=== PATIENT | female | born 1970 | race African-American/Black ===

== ENCOUNTER 2017-06-25 08:38 | Inpatient (IN) | payer BC ==
[2017-06-25] MEDS ORDERED: DEXTROSE 50% 50 ML SYRINGE IV ×2 (12:00)
[2017-06-25] MEDS ORDERED: GLUCAGON 1 MG INJ IM (12:00)
[2017-06-25] MEDS ORDERED: GLUCOSE GEL 15 GRAM TUBE PO ×2 (12:00)
[2017-06-25] MEDS ORDERED: GLUCOSE GEL 15 GRAM TUBE BUCCAL (12:00)
[2017-06-25] MEDS: ASPIRIN (EC) 81 MG TAB PO (13:43)
[2017-06-25] MEDS: LISINOPRIL 5 MG TAB PO (13:44)
[2017-06-25] MEDS: METOPROLOL (XL) 50 MG TAB PO (13:44)
[2017-06-25] MEDS: POTASSIUM CHLORIDE (SR) 20 MEQ TAB PO (13:44)
[2017-06-25] MEDS: LORAZEPAM 0.5 MG TAB PO (13:45)
[2017-06-25] MEDS: INSULIN ASPART [NOVOLOG] 3 ML PEN SC ×3 (14:56→20:23)
[2017-06-25] MEDS: morphine 2 MG INJ IV ×3 (15:20→22:54)
[2017-06-25] MEDS ORDERED: MAGNESIUM HYDROXIDE 30ML CUP PO (16:30)
[2017-06-25] MEDS ORDERED: NACL 0.9% 3 ML SYG IV (16:30)
[2017-06-25] MEDS ORDERED: ACETAMINOPHEN 650 MG SUPP PR (16:30)
[2017-06-25] MEDS ORDERED: DOCUSATE SODIUM 100 MG CAP PO (16:30)
[2017-06-25] MEDS ORDERED: ONDANSETRON 4 MG INJ IV (16:30)
[2017-06-25] MEDS ORDERED: BISACODYL (EC) 5 MG TAB PO (16:30)
[2017-06-25] MEDS: CEFTRIAXONE 1 GM/50 ML (PMX) 50 ML IVPB (17:14)
[2017-06-25] MEDS ORDERED: metFORMIN 500 MG TAB PO (18:05)
[2017-06-25] MEDS: QUETIAPINE 100 MG TAB PO (18:25)
[2017-06-25] MEDS: metFORMIN 500 MG TAB PO (18:45)
[2017-06-25] MEDS: LEVALBUTEROL (NEB) 1.25 MG/0.5 ML AMP HHN (20:01)
[2017-06-25] MEDS: IPRATROPIUM (NEB) 0.5 MG/2.5 ML AMP HHN (20:02)
[2017-06-25] MEDS: FUROSEMIDE 40 MG INJ IV (20:12)
[2017-06-26] MEDS: ACCU-CHEK XX ×2 (02:00)
[2017-06-26] MEDS: LEVALBUTEROL (NEB) 1.25 MG/0.5 ML AMP HHN ×4 (02:00→21:00)
[2017-06-26] MEDS: morphine 2 MG INJ IV ×3 (04:27→19:50)
[2017-06-26] MEDS: IPRATROPIUM (NEB) 0.5 MG/2.5 ML AMP HHN ×4 (07:43→21:00)
[2017-06-26 08:29] LABS: ADD MAN DIFF? NO
[2017-06-26 08:52] LABS: BASOPHILS % 0.4 % (0.0-2.0); EOSINOPHILS % 0.3 % (0.0-7.0); HEMATOCRIT 37.9 % (37.0-47.0); HEMOGLOBIN 11.2 g/dl (12.0-16.0); LYMPHOCYTES # 1.1 10^3/ul (0.8-2.9); LYMPHOCYTES % 14.5 % (15.0-51.0); MEAN CORPUSCULAR HGB CONC 29.6 g/dl (32.0-37.0); MEAN CORPUSCULAR VOLUME 91.3 fl (82.0-101.0); MEAN PLATELET VOLUME 11.3 fl (7.4-10.4); MONOCYTE # 0.6 10^3/ul (0.3-0.9); NEUTROPHIL # 5.9 10^3/ul (1.6-7.5); NEUTROPHILS % 76.4 % (39.0-77.0); PLATELET COUNT 232 10^3/UL (140-415); RED BLOOD COUNT 4.15 10^6/ul (4.20-5.40); RED CELL DISTRIBUTION WIDTH 17.3 % (11.5-14.5)
[2017-06-26 08:52] LABS: WHITE BLOOD COUNT 7.7 10^3/ul (4.8-10.8)
[2017-06-26] MEDS ORDERED: FUROSEMIDE 40 MG INJ IV (09:00)
[2017-06-26] MEDS: POTASSIUM CHLORIDE (SR) 20 MEQ TAB PO (09:07)
[2017-06-26] MEDS: ASPIRIN (EC) 81 MG TAB PO (09:07)
[2017-06-26] MEDS: LISINOPRIL 5 MG TAB PO (09:08)
[2017-06-26] MEDS: metFORMIN 500 MG TAB PO (09:08)
[2017-06-26] MEDS: METOPROLOL (XL) 50 MG TAB PO (09:08)
[2017-06-26] MEDS: FUROSEMIDE 40 MG INJ IV ×2 (09:10→21:41)
[2017-06-26] MEDS: INSULIN ASPART [NOVOLOG] 3 ML PEN SC ×5 (09:20→21:00)
[2017-06-26 09:56] LABS: ALBUMIN/GLOBULIN RATIO 0.85; ANION GAP 13 (8-16)
[2017-06-26 10:14] LABS: ALANINE AMINOTRANSFERASE 72 IU/L (13-69); ALKALINE PHOSPHATASE 78 IU/L (42-121); ASPARTATE AMINO TRANSFERASE 62 IU/L (15-46); BLOOD UREA NITROGEN 26 mg/dl (7-20); CALCIUM 9.1 mg/dl (8.4-10.2); CARBON DIOXIDE 32 mmol/L (21-31); CHLORIDE 97 mmol/L (97-110); CREATININE 1.01 mg/dl (0.44-1.00); GLUCOSE 158 mg/dl (70-220); POTASSIUM 4.7 mmol/L (3.5-5.1); SODIUM 137 mmol/L (135-144)
[2017-06-26 10:15] LABS: ALBUMIN 2.9 g/dl (3.3-4.9); BILIRUBIN,INDIRECT 0.1 mg/dl (0-1.1); BILIRUBIN,TOTAL 0.1 mg/dl (0.2-1.3); TOTAL PROTEIN 6.3 g/dl (6.1-8.1)
[2017-06-26] MEDS: CEFTRIAXONE 1 GM/50 ML (PMX) 50 ML IVPB (11:18)
[2017-06-26] MEDS: ENOXAPARIN 40 MG/0.4 ML SYG SC (15:00)
[2017-06-26] MEDS: METHYLPREDNISOLONE 40 MG INJ IV ×2 (16:00→21:40)
[2017-06-26] MEDS: [UNRECOGNIZED DRUG - REMARK] XX (16:57)
[2017-06-26] MEDS: HYPOGLYCEMIA PROTOCOL when Glucose is <70 mg/dL or symptomatic <90 mg/dL. XX (16:57)
[2017-06-26 17:33] LABS: AADO2 Arterial 40.1 mmHg (7.0-24.0); Allen Test ACCEPTAB; Arterial Base Excess 3.3 mmol/L (-3.0-3); Arterial Blood Gas Oxygen Sat 98.1 mmHG (95.0-98.0); Arterial COHb 0.5 % (0.0-3.0); Arterial Fraction of Oxyhgb 97.3 % (93.0-99.0); Arterial HCO3 31.3 mmol/L (22.0-26.0); Arterial MetHb 0.3 % (0.0-1.5); Arterial Total Hemglobin 13.1 g/dl (12.0-18.0); Arterial pCO2 63.8 mmhg (35-45); MODE NASAL CANNULA; Site Right Radial
[2017-06-26 18:25] LABS: MAGNESIUM 1.7 mg/dl (1.7-2.5)
[2017-06-26] MEDS: ACETAMINOPHEN 325 MG TAB PO (18:35)
[2017-06-26 19:08] LABS: TROPONIN-I 0.019 ng/ml (0.00-0.12)
[2017-06-26] MEDS: AZITHROMYCIN 250 MG TAB PO (19:25)
[2017-06-26] MEDS ORDERED: POTASSIUM CHLORIDE (SR) 10 MEQ TAB PO (20:30)
[2017-06-26] MEDS ORDERED: MAGNESIUM SULFATE 2 GM/50 ML 50 ML IVPB (20:30)
[2017-06-26] MEDS: QUETIAPINE 100 MG TAB PO (21:53)
[2017-06-27] MEDS: LEVALBUTEROL (NEB) 1.25 MG/0.5 ML AMP HHN ×6 (01:29→23:12)
[2017-06-27] MEDS: ACCU-CHEK XX (02:00)
[2017-06-27] MEDS: METHYLPREDNISOLONE 40 MG INJ IV ×3 (05:56→22:34)
[2017-06-27] MEDS: morphine 2 MG INJ IV ×5 (05:56→22:38)
[2017-06-27] MEDS: IPRATROPIUM (NEB) 0.5 MG/2.5 ML AMP HHN ×4 (07:48→20:00)
[2017-06-27] MEDS: INSULIN ASPART [NOVOLOG] 3 ML PEN SC ×7 (08:30→20:18)
[2017-06-27] MEDS: INSULIN DETEMIR [LEVEMIR] 3ML CART SC (08:31)
[2017-06-27] MEDS: ENOXAPARIN 40 MG/0.4 ML SYG SC (08:32)
[2017-06-27] MEDS: ASPIRIN (EC) 81 MG TAB PO (08:42)
[2017-06-27] MEDS: POTASSIUM CHLORIDE (SR) 20 MEQ TAB PO (08:42)
[2017-06-27] MEDS: FUROSEMIDE 40 MG INJ IV ×2 (08:43→20:08)
[2017-06-27] MEDS: QUETIAPINE 100 MG TAB PO (08:43)
[2017-06-27] MEDS: LISINOPRIL 5 MG TAB PO (08:43)
[2017-06-27 08:57] LABS: HEMATOCRIT 35.8 % (37.0-47.0); HEMOGLOBIN 10.8 g/dl (12.0-16.0); MEAN CORPUSCULAR HEMOGLOBIN 27.4 pg (29.0-33.0); MEAN CORPUSCULAR HGB CONC 30.2 g/dl (32.0-37.0); MEAN CORPUSCULAR VOLUME 90.9 fl (82.0-101.0); MEAN PLATELET VOLUME 11.6 fl (7.4-10.4); PLATELET COUNT 202 10^3/UL (140-415); RED BLOOD COUNT 3.94 10^6/ul (4.20-5.40); RED CELL DISTRIBUTION WIDTH 17.5 % (11.5-14.5)
[2017-06-27 08:57] LABS: WHITE BLOOD COUNT 4.1 10^3/ul (4.8-10.8)
[2017-06-27 09:09] LABS: ADD MAN DIFF? YES; POSITIVE DIFF @See below
[2017-06-27 09:11] LABS: ANION GAP 12 (8-16); BLOOD UREA NITROGEN 35 mg/dl (7-20); CALCIUM 8.5 mg/dl (8.4-10.2); CARBON DIOXIDE 34 mmol/L (21-31); CHLORIDE 94 mmol/L (97-110); CREATININE 0.95 mg/dl (0.44-1.00); GLUCOSE 227 mg/dl (70-220); POTASSIUM 5.5 mmol/L (3.5-5.1); SODIUM 134 mmol/L (135-144)
[2017-06-27 09:17] LABS: PHOSPHORUS 5.3 mg/dl (2.5-4.9)
[2017-06-27 09:18] LABS: B-TYPE NATRIURETIC PEPTIDE 1320 PG/ML (0-125)
[2017-06-27 09:42] LABS: MAGNESIUM 1.7 mg/dl (1.7-2.5)
[2017-06-27 10:28] LABS: ANISOCYTOSIS 1+ (0-0); BAND NEUTROPHILS #M 0.2 10^3/ul (0.0-0.6); BAND NEUTROPHILS % (M) 7 % (0-4); GIANT THROMBO% (M) 2 % (0-0); HYPOCHROMASIA 1+ (0-0); LYMPHOCYTES #M 0.9 10^3/ul (0.8-2.9); LYMPHOCYTES % (M) 22 % (15-51); MONOCYTE #M 0.1 10^3/ul (0.3-0.9); MONOCYTES % (M) 4 % (0-11); PLATELET ESTIMATE NORMAL; POLYCHROMASIA 2+ (0-0); SEG NEUT #M 2.7 10^3/ul (1.7-7.5); SEGMENTED NEUTROPHILS (M) % 66 % (39-77); SMUDGE%M 19 % (0-0)
[2017-06-27] MEDS: CEFTRIAXONE 1 GM/50 ML (PMX) 50 ML IVPB (12:04)
[2017-06-27] MEDS: NA POLYST SULFON 15 GM/60 ML BTL PO (17:50)
[2017-06-27 18:53] LABS: TROPONIN-I < 0.012 ng/ml (0.00-0.12)
[2017-06-28] MEDS: ACCU-CHEK XX (02:00)
[2017-06-28 02:59] LABS: TROPONIN-I < 0.012 ng/ml (0.00-0.12)
[2017-06-28] MEDS: morphine 2 MG INJ IV ×5 (03:28→22:42)
[2017-06-28] MEDS: LEVALBUTEROL (NEB) 1.25 MG/0.5 ML AMP HHN ×5 (04:08→20:26)
[2017-06-28] MEDS: METHYLPREDNISOLONE 40 MG INJ IV ×3 (06:12→22:41)
[2017-06-28] MEDS ORDERED: INSULIN DETEMIR [LEVEMIR] 3ML CART SC (08:00)
[2017-06-28] MEDS: IPRATROPIUM (NEB) 0.5 MG/2.5 ML AMP HHN ×4 (08:31→20:25)
[2017-06-28] MEDS: FUROSEMIDE 40 MG INJ IV ×2 (09:12→21:09)
[2017-06-28] MEDS: INSULIN ASPART [NOVOLOG] 3 ML PEN SC ×7 (09:16→21:11)
[2017-06-28] MEDS: INSULIN DETEMIR [LEVEMIR] 3ML CART SC (09:17)
[2017-06-28] MEDS: ENOXAPARIN 40 MG/0.4 ML SYG SC (09:19)
[2017-06-28 10:37] LABS: ADD MAN DIFF? NO
[2017-06-28 10:40] LABS: WHITE BLOOD COUNT 6.4 10^3/ul (4.8-10.8)
[2017-06-28 10:40] LABS: BASOPHILS % 0.2 % (0.0-2.0); HEMATOCRIT 38.6 % (37.0-47.0); HEMOGLOBIN 11.7 g/dl (12.0-16.0); LYMPHOCYTES # 1.2 10^3/ul (0.8-2.9); LYMPHOCYTES % 18.1 % (15.0-51.0); MEAN CORPUSCULAR HEMOGLOBIN 27.4 pg (29.0-33.0); MEAN CORPUSCULAR HGB CONC 30.3 g/dl (32.0-37.0); MEAN CORPUSCULAR VOLUME 90.4 fl (82.0-101.0); MEAN PLATELET VOLUME 10.8 fl (7.4-10.4); MONOCYTE # 0.4 10^3/ul (0.3-0.9); MONOCYTES % 6.9 % (0.0-11.0); NEUTROPHIL # 4.8 10^3/ul (1.6-7.5); NEUTROPHILS % 74.2 % (39.0-77.0); PLATELET COUNT 195 10^3/UL (140-415); RED BLOOD COUNT 4.27 10^6/ul (4.20-5.40); RED CELL DISTRIBUTION WIDTH 17.2 % (11.5-14.5)
[2017-06-28] MEDS: METOPROLOL (XL) 25 MG TAB PO (10:49)
[2017-06-28] MEDS: ASPIRIN (EC) 81 MG TAB PO (10:50)
[2017-06-28] MEDS: LISINOPRIL 5 MG TAB PO (10:50)
[2017-06-28 11:20] LABS: ANION GAP 12 (8-16); BLOOD UREA NITROGEN 25 mg/dl (7-20); CALCIUM 8.4 mg/dl (8.4-10.2); CARBON DIOXIDE 38 mmol/L (21-31); CHLORIDE 90 mmol/L (97-110); CREATININE 0.74 mg/dl (0.44-1.00); GLUCOSE 269 mg/dl (70-220); POTASSIUM 4.6 mmol/L (3.5-5.1); SODIUM 135 mmol/L (135-144)
[2017-06-28 11:22] LABS: CHOLESTEROL 123 mg/dl (100-200)
[2017-06-28 11:22] LABS: CHOL/HDL RATIO 4.3 RATIO; HDL CHOLESTEROL 28 mg/dl (34-88); LDL CHOLESTEROL,CALCULATED 80 mg/dl; TRIGLYCERIDES 74 mg/dl (0-149)
[2017-06-28] MEDS: CEFTRIAXONE 1 GM/50 ML (PMX) 50 ML IVPB (12:08)
[2017-06-28] MEDS: QUETIAPINE 100 MG TAB PO (21:09)
[2017-06-28] MEDS ORDERED: DEXTROSE 5%-0.45% NACL 1,000 ML IV (23:30)
[2017-06-29] MEDS: LEVALBUTEROL (NEB) 1.25 MG/0.5 ML AMP HHN ×6 (00:23→20:20)
[2017-06-29] MEDS: ACCU-CHEK XX (02:00)
[2017-06-29] MEDS: METHYLPREDNISOLONE 40 MG INJ IV ×3 (06:49→22:07)
[2017-06-29] MEDS: IPRATROPIUM (NEB) 0.5 MG/2.5 ML AMP HHN ×4 (07:48→20:20)
[2017-06-29 09:01] LABS: WHITE BLOOD COUNT 7.9 10^3/ul (4.8-10.8)
[2017-06-29 09:01] LABS: ADD MAN DIFF? NO; BASOPHILS % 0.1 % (0.0-2.0); LYMPHOCYTES # 1.9 10^3/ul (0.8-2.9); LYMPHOCYTES % 24.7 % (15.0-51.0); MEAN CORPUSCULAR HEMOGLOBIN 27.4 pg (29.0-33.0); MEAN CORPUSCULAR VOLUME 91.3 fl (82.0-101.0); MEAN PLATELET VOLUME 10.9 fl (7.4-10.4); MONOCYTE # 0.6 10^3/ul (0.3-0.9); MONOCYTES % 7.6 % (0.0-11.0); NEUTROPHIL # 5.3 10^3/ul (1.6-7.5); NEUTROPHILS % 67.1 % (39.0-77.0); PLATELET COUNT 184 10^3/UL (140-415); RED BLOOD COUNT 4.38 10^6/ul (4.20-5.40); RED CELL DISTRIBUTION WIDTH 17.1 % (11.5-14.5)
[2017-06-29 09:15] LABS: POSITIVE DIFF @See below
[2017-06-29 09:26] LABS: MAGNESIUM 1.7 mg/dl (1.7-2.5)
[2017-06-29 09:34] LABS: ANION GAP 12 (8-16); BLOOD UREA NITROGEN 25 mg/dl (7-20); CALCIUM 8.4 mg/dl (8.4-10.2); CHLORIDE 92 mmol/L (97-110); CREATININE 0.66 mg/dl (0.44-1.00); GLUCOSE 256 mg/dl (70-220); POTASSIUM 4.3 mmol/L (3.5-5.1); SODIUM 140 mmol/L (135-144)
[2017-06-29] MEDS: ASPIRIN (EC) 81 MG TAB PO (09:41)
[2017-06-29] MEDS: METOPROLOL (XL) 25 MG TAB PO (09:42)
[2017-06-29] MEDS: LISINOPRIL 5 MG TAB PO (09:42)
[2017-06-29] MEDS: morphine 2 MG INJ IV (09:43)
[2017-06-29] MEDS: FUROSEMIDE 40 MG INJ IV ×2 (09:43→22:06)
[2017-06-29 09:48] LABS: CARBON DIOXIDE 41 mmol/L (21-31)
[2017-06-29] MEDS: INSULIN DETEMIR [LEVEMIR] 3ML CART SC ×2 (09:48→22:09)
[2017-06-29] MEDS: ENOXAPARIN 40 MG/0.4 ML SYG SC (09:49)
[2017-06-29] MEDS: INSULIN ASPART [NOVOLOG] 3 ML PEN SC ×7 (09:50→22:10)
[2017-06-29] MEDS: morphine 4 MG/ML VIAL IV ×4 (10:41→23:06)
[2017-06-29] MEDS: CEFTRIAXONE 1 GM/50 ML (PMX) 50 ML IVPB (12:10)
[2017-06-29] MEDS: QUETIAPINE 100 MG TAB PO (22:07)
[2017-06-30] MEDS: LEVALBUTEROL (NEB) 1.25 MG/0.5 ML AMP HHN ×7 (00:03→22:01)
[2017-06-30] MEDS: ACCU-CHEK XX (02:00)
[2017-06-30 07:55] LABS: HEMOGLOBIN A1C 8.6 % (0-5.9)
[2017-06-30] MEDS: IPRATROPIUM (NEB) 0.5 MG/2.5 ML AMP HHN ×5 (07:58→22:01)
[2017-06-30] MEDS: FUROSEMIDE 40 MG INJ IV (09:02)
[2017-06-30] MEDS: ACETAZOLAMIDE 250 MG TAB PO (09:02)
[2017-06-30] MEDS: METHYLPREDNISOLONE 40 MG INJ IV ×2 (09:03→20:43)
[2017-06-30] MEDS: METOPROLOL (XL) 25 MG TAB PO (09:03)
[2017-06-30] MEDS: LISINOPRIL 5 MG TAB PO (09:03)
[2017-06-30] MEDS: ASPIRIN (EC) 81 MG TAB PO (09:03)
[2017-06-30] MEDS: INSULIN ASPART [NOVOLOG] 3 ML PEN SC ×7 (09:05→20:59)
[2017-06-30] MEDS: ENOXAPARIN 40 MG/0.4 ML SYG SC (09:16)
[2017-06-30] MEDS: morphine 4 MG/ML VIAL IV ×2 (09:16→16:43)
[2017-06-30] MEDS: LINAGLIPTIN 5 MG TABLET PO ×2 (12:00→16:48)
[2017-06-30] MEDS: CEFTRIAXONE 1 GM/50 ML (PMX) 50 ML IVPB (12:20)
[2017-06-30] MEDS: QUETIAPINE 100 MG TAB PO (20:44)
[2017-06-30] MEDS: HYDROmorphONE 1 MG/ML SYG IV (20:44)
[2017-06-30] MEDS: INSULIN DETEMIR [LEVEMIR] 3ML CART SC (20:59)
[2017-07-01] MEDS: FUROSEMIDE 20 MG INJ IV ×4 (00:45→18:39)
[2017-07-01] MEDS: LEVALBUTEROL (NEB) 1.25 MG/0.5 ML AMP HHN ×6 (01:20→21:03)
[2017-07-01] MEDS: ACCU-CHEK XX (02:15)
[2017-07-01] MEDS: IPRATROPIUM (NEB) 0.5 MG/2.5 ML AMP HHN ×4 (08:10→21:02)
[2017-07-01] MEDS: METHYLPREDNISOLONE 40 MG INJ IV ×2 (08:45→20:46)
[2017-07-01] MEDS: METOLAZONE 2.5 MG TAB PO (08:46)
[2017-07-01] MEDS: ENOXAPARIN 40 MG/0.4 ML SYG SC (08:47)
[2017-07-01] MEDS: INSULIN ASPART [NOVOLOG] 3 ML PEN SC ×7 (08:48→20:48)
[2017-07-01] MEDS: ASPIRIN (EC) 81 MG TAB PO (08:48)
[2017-07-01] MEDS: LISINOPRIL 5 MG TAB PO (08:49)
[2017-07-01] MEDS: ACETAZOLAMIDE 250 MG TAB PO (08:49)
[2017-07-01] MEDS: LINAGLIPTIN 5 MG TABLET PO (08:49)
[2017-07-01] MEDS: METOPROLOL (XL) 25 MG TAB PO (08:49)
[2017-07-01] MEDS: HYDROmorphONE 1 MG/ML SYG IV ×3 (09:37→18:45)
[2017-07-01] MEDS ORDERED: VITAMIN A & D 5 GM OINT PACKET TOP (11:23)
[2017-07-01] MEDS: CEFTRIAXONE 1 GM/50 ML (PMX) 50 ML IVPB (12:35)
[2017-07-01] MEDS: QUETIAPINE 100 MG TAB PO (20:46)
[2017-07-01] MEDS: INSULIN DETEMIR [LEVEMIR] 3ML CART SC (20:49)
[2017-07-02] MEDS: FUROSEMIDE 20 MG INJ IV ×5 (01:15→23:48)
[2017-07-02] MEDS: LEVALBUTEROL (NEB) 1.25 MG/0.5 ML AMP HHN ×6 (01:55→21:04)
[2017-07-02] MEDS: ACCU-CHEK XX (02:00)
[2017-07-02] MEDS: HYDROmorphONE 1 MG/ML SYG IV ×5 (03:16→22:12)
[2017-07-02] MEDS: METOPROLOL (XL) 25 MG TAB PO (08:45)
[2017-07-02] MEDS: LISINOPRIL 5 MG TAB PO (08:46)
[2017-07-02] MEDS: METHYLPREDNISOLONE 40 MG INJ IV (09:03)
[2017-07-02] MEDS: METOLAZONE 2.5 MG TAB PO (09:04)
[2017-07-02] MEDS: ACETAZOLAMIDE 250 MG TAB PO (09:05)
[2017-07-02] MEDS: LINAGLIPTIN 5 MG TABLET PO (09:05)
[2017-07-02] MEDS: ASPIRIN (EC) 81 MG TAB PO (09:05)
[2017-07-02] MEDS: ENOXAPARIN 40 MG/0.4 ML SYG SC (09:12)
[2017-07-02] MEDS: INSULIN ASPART [NOVOLOG] 3 ML PEN SC ×7 (09:23→21:02)
[2017-07-02] MEDS: IPRATROPIUM (NEB) 0.5 MG/2.5 ML AMP HHN ×4 (09:59→21:04)
[2017-07-02 10:48] LABS: ALANINE AMINOTRANSFERASE 47 IU/L (13-69); ALBUMIN 3.4 g/dl (3.3-4.9); ALBUMIN/GLOBULIN RATIO 1.06; ALKALINE PHOSPHATASE 65 IU/L (42-121); ANION GAP 13 (8-16); ASPARTATE AMINO TRANSFERASE 29 IU/L (15-46); BILIRUBIN,INDIRECT 0.1 mg/dl (0-1.1); BILIRUBIN,TOTAL 0.1 mg/dl (0.2-1.3); BLOOD UREA NITROGEN 30 mg/dl (7-20); CALCIUM 8.9 mg/dl (8.4-10.2); CARBON DIOXIDE 38 mmol/L (21-31); CHLORIDE 88 mmol/L (97-110); CREATININE 0.81 mg/dl (0.44-1.00); GLUCOSE 251 mg/dl (70-220); POTASSIUM 3.9 mmol/L (3.5-5.1); SODIUM 135 mmol/L (135-144); TOTAL PROTEIN 6.6 g/dl (6.1-8.1)
[2017-07-02] MEDS: CEFTRIAXONE 1 GM/50 ML (PMX) 50 ML IVPB (11:52)
[2017-07-02 16:41] LABS: Allen Test ACCEPTAB; Arterial Base Excess 11.1 mmol/L (-3.0-3); Arterial Blood Gas Oxygen Sat 94.7 mmHG (95.0-98.0); Arterial Fraction of Oxyhgb 93.6 % (93.0-99.0); Arterial HCO3 39.5 mmol/L (22.0-26.0); Arterial MetHb 0.2 % (0.0-1.5); Arterial pCO2 68.5 mmhg (35-45); MODE NASAL CANNULA; Site Right Radial
[2017-07-02] MEDS: INSULIN DETEMIR [LEVEMIR] 3ML CART SC (21:03)
[2017-07-02] MEDS: QUETIAPINE 100 MG TAB PO (22:11)
[2017-07-03] MEDS: LEVALBUTEROL (NEB) 1.25 MG/0.5 ML AMP HHN ×7 (01:55→21:46)
[2017-07-03] MEDS: ACCU-CHEK XX (02:00)
[2017-07-03] MEDS: FUROSEMIDE 20 MG INJ IV ×3 (06:00→17:10)
[2017-07-03] MEDS: INSULIN ASPART [NOVOLOG] 3 ML PEN SC ×7 (08:00→20:48)
[2017-07-03 08:13] LABS: ADD MAN DIFF? NO
[2017-07-03 08:19] LABS: BASOPHILS % 0.1 % (0.0-2.0); EOSINOPHILS % 0.3 % (0.0-7.0); HEMATOCRIT 43.7 % (37.0-47.0); HEMOGLOBIN 13.4 g/dl (12.0-16.0); LYMPHOCYTES # 3.6 10^3/ul (0.8-2.9); LYMPHOCYTES % 28.5 % (15.0-51.0); MEAN CORPUSCULAR HEMOGLOBIN 26.7 pg (29.0-33.0); MEAN CORPUSCULAR HGB CONC 30.7 g/dl (32.0-37.0); MEAN CORPUSCULAR VOLUME 87.1 fl (82.0-101.0); MEAN PLATELET VOLUME 11.5 fl (7.4-10.4); MONOCYTES % 7.5 % (0.0-11.0); NEUTROPHILS % 62.8 % (39.0-77.0); PLATELET COUNT 219 10^3/UL (140-415); RED BLOOD COUNT 5.02 10^6/ul (4.20-5.40); RED CELL DISTRIBUTION WIDTH 17.3 % (11.5-14.5)
[2017-07-03 08:19] LABS: WHITE BLOOD COUNT 12.7 10^3/ul (4.8-10.8)
[2017-07-03] MEDS: IPRATROPIUM (NEB) 0.5 MG/2.5 ML AMP HHN ×5 (08:33→21:46)
[2017-07-03 08:44] LABS: MAGNESIUM 1.7 mg/dl (1.7-2.5)
[2017-07-03 08:44] LABS: PHOSPHORUS 4.7 mg/dl (2.5-4.9)
[2017-07-03 08:58] LABS: BLOOD UREA NITROGEN 37 mg/dl (7-20); CALCIUM 9.1 mg/dl (8.4-10.2); CHLORIDE 89 mmol/L (97-110); CREATININE 0.92 mg/dl (0.44-1.00); GLUCOSE 160 mg/dl (70-220); POTASSIUM 3.6 mmol/L (3.5-5.1); SODIUM 139 mmol/L (135-144)
[2017-07-03 09:02] LABS: ANION GAP 14 (8-16)
[2017-07-03 09:08] LABS: CARBON DIOXIDE 40 mmol/L (21-31)
[2017-07-03] MEDS: HYDROmorphONE 1 MG/ML SYG IV (09:20)
[2017-07-03] MEDS: predniSONE 20 MG TAB PO (09:45)
[2017-07-03] MEDS: ASPIRIN (EC) 81 MG TAB PO (09:45)
[2017-07-03] MEDS: ACETAZOLAMIDE 250 MG TAB PO (09:46)
[2017-07-03] MEDS: METOLAZONE 2.5 MG TAB PO (09:46)
[2017-07-03] MEDS: LINAGLIPTIN 5 MG TABLET PO (09:47)
[2017-07-03] MEDS: LISINOPRIL 5 MG TAB PO (09:47)
[2017-07-03] MEDS: METOPROLOL (XL) 25 MG TAB PO (09:48)
[2017-07-03] MEDS: ENOXAPARIN 40 MG/0.4 ML SYG SC (09:55)
[2017-07-03 10:48] LABS: AADO2 Arterial 35.9 mmHg (7.0-24.0)
[2017-07-03] MEDS: HYDROmorphONE 4 MG TAB PO ×3 (13:57→21:36)
[2017-07-03] MEDS ORDERED: FUROSEMIDE 20 MG TAB PO (18:00)
[2017-07-03] MEDS: QUETIAPINE 100 MG TAB PO (20:43)
[2017-07-03] MEDS: INSULIN DETEMIR [LEVEMIR] 3ML CART SC (20:49)
[2017-07-04] MEDS: LEVALBUTEROL (NEB) 1.25 MG/0.5 ML AMP HHN ×2 (00:26→04:27)
[2017-07-04] MEDS: ACCU-CHEK XX (02:00)
[2017-07-04] MEDS: HYDROmorphONE 4 MG TAB PO ×2 (05:11→10:06)
[2017-07-04] MEDS: FUROSEMIDE 20 MG TAB PO (05:12)
[2017-07-04] MEDS: ACETAZOLAMIDE 250 MG TAB PO (08:47)
[2017-07-04] MEDS: LINAGLIPTIN 5 MG TABLET PO (08:48)
[2017-07-04] MEDS: predniSONE 50 MG TAB GTB (08:48)
[2017-07-04] MEDS: ASPIRIN (EC) 81 MG TAB PO (08:49)
[2017-07-04] MEDS: INSULIN ASPART [NOVOLOG] 3 ML PEN SC ×2 (08:55→08:56)
[2017-07-04] MEDS: ENOXAPARIN 40 MG/0.4 ML SYG SC (08:56)
[2017-07-04] MEDS: LISINOPRIL 5 MG TAB PO (08:56)
[2017-07-04] MEDS: METOPROLOL (XL) 25 MG TAB PO (08:57)
[2017-07-04 09:04] LABS: ANION GAP 14 (8-16); BLOOD UREA NITROGEN 44 mg/dl (7-20); CARBON DIOXIDE 34 mmol/L (21-31); CHLORIDE 92 mmol/L (97-110); CREATININE 0.91 mg/dl (0.44-1.00); GLUCOSE 258 mg/dl (70-220); POTASSIUM 3.8 mmol/L (3.5-5.1); SODIUM 136 mmol/L (135-144)
== END 2017-07-04 10:47 | disposition home or self-care (01) | DRG 291 ==
LOC: MS4 08:38
PROVIDERS: Internal Medicine Nephrology
DX: I11.0 Hypertensive heart disease with heart failure (principal); J18.9 Pneumonia, unspecified organism; I47.2 Ventricular tachycardia; J96.11 Chronic respiratory failure with hypoxia; J96.12 Chronic respiratory failure with hypercapnia; I42.9 Cardiomyopathy, unspecified; J44.1 Chronic obstructive pulmonary disease with (acute) exacerbation; Z68.43 Body mass index [BMI] 50.0-59.9, adult; E87.1 Hypo-osmolality and hyponatremia; I50.23 Acute on chronic systolic (congestive) heart failure; E11.9 Type 2 diabetes mellitus without complications; D64.9 Anemia, unspecified; E78.5 Hyperlipidemia, unspecified; F32.9 Major depressive disorder, single episode, unspecified; G47.33 Obstructive sleep apnea (adult) (pediatric); E66.01 Morbid (severe) obesity due to excess calories; E87.5 Hyperkalemia; F41.9 Anxiety disorder, unspecified
CPT/HCPCS: 36600; 71010; 71045; 80048; 80053; 80061; 82803; 82962; 83036; 83735; 83880; 84100; 84484; 85025; 87070; 87400; 93005; 93970; 94640; 94660; 94664; 97110; 97116; 97163; 97530; J1940

== ENCOUNTER 2017-07-24 11:11 | Inpatient (IN) | payer BC ==
[2017-07-24] MEDS ORDERED: DOCUSATE SODIUM 100 MG CAP PO (13:30)
[2017-07-24] MEDS ORDERED: BISACODYL (EC) 5 MG TAB PO (13:30)
[2017-07-24] MEDS ORDERED: GLUCOSE GEL 15 GRAM TUBE BUCCAL (13:30)
[2017-07-24] MEDS ORDERED: GLUCAGON 1 MG INJ IM (13:30)
[2017-07-24] MEDS ORDERED: ALBUTEROL/IPRATROPIUM (NEB) 3 ML AMP HHN (13:30)
[2017-07-24] MEDS ORDERED: GLUCOSE GEL 15 GRAM TUBE PO ×2 (13:30)
[2017-07-24] MEDS ORDERED: DEXTROSE 50% 50 ML SYRINGE IV ×2 (13:30)
[2017-07-24] MEDS: HYDROmorphONE 0.5 MG/0.5 ML SYG IV ×3 (13:49→22:51)
[2017-07-24] MEDS: ALBUTEROL/IPRATROPIUM (NEB) 3 ML AMP HHN ×3 (14:00→19:23)
[2017-07-24] MEDS ORDERED: INSULIN ASPART [NOVOLOG] 3 ML PEN SC (17:55)
[2017-07-24] MEDS: INSULIN ASPART [NOVOLOG] 3 ML PEN SC ×3 (18:22→21:00)
[2017-07-24] MEDS ORDERED: VITAMIN A & D 5 GM OINT PACKET TOP (20:32)
[2017-07-24] MEDS: ATORVASTATIN 10 MG TAB PO (21:19)
[2017-07-24] MEDS: INSULIN DETEMIR [LEVEMIR] 3ML CART SC (21:26)
[2017-07-25] MEDS ORDERED: ACCU-CHEK XX (02:00)
[2017-07-25] MEDS: ACCU-CHEK XX (02:00)
[2017-07-25] MEDS: HYDROmorphONE 0.5 MG/0.5 ML SYG IV ×5 (02:49→20:45)
[2017-07-25] MEDS: ALBUTEROL/IPRATROPIUM (NEB) 3 ML AMP HHN ×3 (07:41→20:10)
[2017-07-25] MEDS: INSULIN ASPART [NOVOLOG] 3 ML PEN SC ×7 (07:55→20:45)
[2017-07-25] MEDS: predniSONE 20 MG TAB GTB (08:31)
[2017-07-25] MEDS: POTASSIUM CHLORIDE (SR) 20 MEQ TAB PO (08:31)
[2017-07-25] MEDS: ASPIRIN (EC) 81 MG TAB PO (08:31)
[2017-07-25] MEDS: ENOXAPARIN 40 MG/0.4 ML SYG SC (08:32)
[2017-07-25] MEDS: FUROSEMIDE 20 MG INJ IV (08:35)
[2017-07-25] MEDS: LISINOPRIL 5 MG TAB PO (08:35)
[2017-07-25] MEDS: METOPROLOL (XL) 25 MG TAB PO (08:36)
[2017-07-25] MEDS: LINAGLIPTIN 5 MG TABLET PO (08:41)
[2017-07-25] MEDS ORDERED: ASPIRIN (EC) 81 MG TAB PO (09:00)
[2017-07-25] MEDS ORDERED: FUROSEMIDE 40 MG TAB PO (09:00)
[2017-07-25] MEDS: QUETIAPINE 100 MG TAB PO ×2 (09:00→20:44)
[2017-07-25 09:17] LABS: ADD MAN DIFF? NO
[2017-07-25 09:24] LABS: BASOPHILS % 0.5 % (0.0-2.0); EOSINOPHILS # 0.1 10^3/ul (0.0-0.5); EOSINOPHILS % 1.7 % (0.0-7.0); HEMATOCRIT 37.2 % (37.0-47.0); HEMOGLOBIN 11.4 g/dl (12.0-16.0); LYMPHOCYTES # 2.9 10^3/ul (0.8-2.9); MEAN CORPUSCULAR HEMOGLOBIN 28.1 pg (29.0-33.0); MEAN CORPUSCULAR HGB CONC 30.6 g/dl (32.0-37.0); MEAN CORPUSCULAR VOLUME 91.6 fl (82.0-101.0); MEAN PLATELET VOLUME 11.5 fl (7.4-10.4); MONOCYTE # 0.6 10^3/ul (0.3-0.9); MONOCYTES % 9.1 % (0.0-11.0); NEUTROPHIL # 2.7 10^3/ul (1.6-7.5); NEUTROPHILS % 42.5 % (39.0-77.0); PLATELET COUNT 222 10^3/UL (140-415); RED BLOOD COUNT 4.06 10^6/ul (4.20-5.40); RED CELL DISTRIBUTION WIDTH 18.2 % (11.5-14.5)
[2017-07-25 09:24] LABS: WHITE BLOOD COUNT 6.4 10^3/ul (4.8-10.8)
[2017-07-25 09:47] LABS: ALANINE AMINOTRANSFERASE 41 IU/L (13-69); ALBUMIN/GLOBULIN RATIO 1.07; ALKALINE PHOSPHATASE 63 IU/L (42-121); ANION GAP 12 (8-16); ASPARTATE AMINO TRANSFERASE 34 IU/L (15-46); BILIRUBIN,INDIRECT 0.1 mg/dl (0-1.1); BILIRUBIN,TOTAL 0.1 mg/dl (0.2-1.3); BLOOD UREA NITROGEN 18 mg/dl (7-20); CARBON DIOXIDE 30 mmol/L (21-31); CHLORIDE 104 mmol/L (97-110); CREATININE 0.81 mg/dl (0.44-1.00); GLUCOSE 101 mg/dl (70-220); POTASSIUM 4.3 mmol/L (3.5-5.1); SODIUM 142 mmol/L (135-144); TOTAL PROTEIN 5.8 g/dl (6.1-8.1)
[2017-07-25 09:51] LABS: CHOLESTEROL 150 mg/dl (100-200)
[2017-07-25 09:51] LABS: CHOL/HDL RATIO 3.7 RATIO; HDL CHOLESTEROL 40 mg/dl (34-88); LDL CHOLESTEROL,CALCULATED 96 mg/dl; TRIGLYCERIDES 69 mg/dl (0-149)
[2017-07-25 18:30] LABS: CANNABINOIDS Positive (NEGATIVE); OPIATES Positive (NEGATIVE)
[2017-07-25] MEDS: CLOPIDOGREL 75 MG TAB PO (18:30)
[2017-07-25 18:33] LABS: AMPHETAMINE/METHAMPHETAMINE Negative (NEGATIVE); BARBITURATES Negative (NEGATIVE); BENZODIAZEPINES Negative (NEGATIVE); COCAINE Positive (NEGATIVE)
[2017-07-25] MEDS: ISOSORBIDE DINITRATE 20 MG TAB PO (20:44)
[2017-07-25] MEDS: ATORVASTATIN 10 MG TAB PO (20:44)
[2017-07-25] MEDS: INSULIN DETEMIR [LEVEMIR] 3ML CART SC (20:51)
[2017-07-26] MEDS: ACCU-CHEK XX (02:00)
[2017-07-26] MEDS: HYDROmorphONE 0.5 MG/0.5 ML SYG IV ×4 (07:51→21:02)
[2017-07-26] MEDS: INSULIN ASPART [NOVOLOG] 3 ML PEN SC ×7 (07:55→21:00)
[2017-07-26 09:00] LABS: CHOL/HDL RATIO 3.1 RATIO; HDL CHOLESTEROL 40 mg/dl (34-88); LDL CHOLESTEROL,CALCULATED 75 mg/dl; TRIGLYCERIDES 58 mg/dl (0-149)
[2017-07-26 09:00] LABS: CHOLESTEROL 127 mg/dl (100-200)
[2017-07-26] MEDS: ALBUTEROL/IPRATROPIUM (NEB) 3 ML AMP HHN ×3 (09:12→20:00)
[2017-07-26] MEDS: LINAGLIPTIN 5 MG TABLET PO (10:26)
[2017-07-26] MEDS: POTASSIUM CHLORIDE (SR) 20 MEQ TAB PO (10:26)
[2017-07-26] MEDS: CLOPIDOGREL 75 MG TAB PO (10:26)
[2017-07-26] MEDS: ASPIRIN (EC) 81 MG TAB PO (10:27)
[2017-07-26] MEDS: LISINOPRIL 5 MG TAB PO (10:27)
[2017-07-26] MEDS: ISOSORBIDE DINITRATE 20 MG TAB PO ×3 (10:27→21:00)
[2017-07-26] MEDS: predniSONE 20 MG TAB GTB (10:27)
[2017-07-26] MEDS: FUROSEMIDE 20 MG INJ IV (10:28)
[2017-07-26] MEDS: ENOXAPARIN 40 MG/0.4 ML SYG SC (10:58)
[2017-07-26] MEDS: LORAZEPAM 1 MG TAB PO ×2 (14:25→21:29)
[2017-07-26] MEDS: QUETIAPINE 100 MG TAB PO (20:59)
[2017-07-26] MEDS: ATORVASTATIN 10 MG TAB PO (21:00)
[2017-07-26] MEDS: INSULIN DETEMIR [LEVEMIR] 3ML CART SC (21:08)
[2017-07-27] MEDS: ACCU-CHEK XX (02:00)
[2017-07-27] MEDS: INSULIN ASPART [NOVOLOG] 3 ML PEN SC ×4 (07:55→12:04)
[2017-07-27] MEDS: ALBUTEROL/IPRATROPIUM (NEB) 3 ML AMP HHN ×2 (08:24→14:00)
[2017-07-27] MEDS: HYDROmorphONE 0.5 MG/0.5 ML SYG IV ×2 (08:48→12:57)
[2017-07-27] MEDS: ENOXAPARIN 40 MG/0.4 ML SYG SC (09:00)
[2017-07-27] MEDS: predniSONE 20 MG TAB GTB (10:01)
[2017-07-27] MEDS: CLOPIDOGREL 75 MG TAB PO (10:01)
[2017-07-27] MEDS: LINAGLIPTIN 5 MG TABLET PO (10:01)
[2017-07-27] MEDS: LISINOPRIL 5 MG TAB PO (10:02)
[2017-07-27] MEDS: ISOSORBIDE DINITRATE 20 MG TAB PO ×2 (10:02→12:09)
[2017-07-27] MEDS: FUROSEMIDE 20 MG INJ IV (10:02)
[2017-07-27] MEDS: POTASSIUM CHLORIDE (SR) 20 MEQ TAB PO (10:02)
[2017-07-27] MEDS: ASPIRIN (EC) 81 MG TAB PO (10:03)
[2017-07-27] MEDS: LORAZEPAM 1 MG TAB PO (12:09)
[2017-07-27] MEDS: DILTIAZEM (CD) 180 MG CAP PO (14:14)
[2017-08-02 08:26] LABS: URINE DRUG SCREEN RESULT DRUG(S) DETECTED:
== END 2017-07-27 15:03 | disposition home or self-care (01) | DRG 280 ==
LOC: TEL 11:11
PROVIDERS: Internal Medicine Nephrology
DX: I21.4 Non-ST elevation (NSTEMI) myocardial infarction (principal); I50.23 Acute on chronic systolic (congestive) heart failure; Z68.43 Body mass index [BMI] 50.0-59.9, adult; I11.0 Hypertensive heart disease with heart failure; E78.5 Hyperlipidemia, unspecified; E11.9 Type 2 diabetes mellitus without complications; E66.9 Obesity, unspecified; J44.9 Chronic obstructive pulmonary disease, unspecified; Z91.19 Patient's noncompliance with other medical treatment and regimen; F99 Mental disorder, not otherwise specified; F17.200 Nicotine dependence, unspecified, uncomplicated; F12.10 Cannabis abuse, uncomplicated; F11.10 Opioid abuse, uncomplicated; F15.10 Other stimulant abuse, uncomplicated; Z79.4 Long term (current) use of insulin
CPT/HCPCS: 80053; 80061; 80307; 82962; 84484; 85025; 93005; 93306; 94640; 94660; 94664; J1940

== ENCOUNTER 2018-01-07 22:56 | Inpatient (IN) | payer BC ==
[2018-01-08] MEDS ORDERED: ACETAMINOPHEN 325 MG TAB PO (01:30)
[2018-01-08] MEDS ORDERED: IBUPROFEN 600 MG TAB PO (01:30)
[2018-01-08] MEDS: IPRATROPIUM (NEB) 0.5 MG/2.5 ML AMP HHN ×4 (02:00→19:24)
[2018-01-08] MEDS: ACCU-CHEK XX (02:00)
[2018-01-08] MEDS ORDERED: GLUCOSE GEL 15 GRAM TUBE BUCCAL (03:00)
[2018-01-08] MEDS ORDERED: GLUCAGON 1 MG INJ IM (03:00)
[2018-01-08] MEDS ORDERED: GLUCOSE GEL 15 GRAM TUBE PO ×2 (03:00)
[2018-01-08] MEDS ORDERED: DEXTROSE 50% 50 ML SYRINGE IV ×2 (03:00)
[2018-01-08] MEDS: PANTOPRAZOLE (EC) 40 MG TAB PO ×2 (06:37→17:14)
[2018-01-08 07:47] LABS: ADD MAN DIFF? NO
[2018-01-08 07:57] LABS: WHITE BLOOD COUNT 5.9 10^3/ul (4.8-10.8)
[2018-01-08 07:57] LABS: BASOPHILS % 0.7 % (0.0-2.0); EOSINOPHILS # 0.1 10^3/ul (0.0-0.5); EOSINOPHILS % 0.9 % (0.0-7.0); HEMATOCRIT 43.8 % (37.0-47.0); HEMOGLOBIN 13.1 g/dl (12.0-16.0); LYMPHOCYTES # 2.4 10^3/ul (0.8-2.9); MEAN CORPUSCULAR HEMOGLOBIN 28.1 pg (29.0-33.0); MEAN CORPUSCULAR HGB CONC 29.9 g/dl (32.0-37.0); MEAN PLATELET VOLUME 11.3 fl (7.4-10.4); MONOCYTE # 0.8 10^3/ul (0.3-0.9); MONOCYTES % 13.7 % (0.0-11.0); NEUTROPHIL # 2.5 10^3/ul (1.6-7.5); NEUTROPHILS % 43.4 % (39.0-77.0); NUCLEATED RED BLOOD CELLS% 0.5 /100WBC (0.0-0.0); PLATELET COUNT 169 10^3/UL (140-415); RED BLOOD COUNT 4.66 10^6/ul (4.20-5.40)
[2018-01-08] MEDS: INSULIN ASPART [NOVOLOG] 3 ML PEN SC ×4 (08:00→20:46)
[2018-01-08] MEDS: metFORMIN 500 MG TAB PO ×2 (08:19→17:14)
[2018-01-08] MEDS: FUROSEMIDE 40 MG TAB PO (08:20)
[2018-01-08] MEDS: POTASSIUM CHLORIDE (SR) 20 MEQ TAB PO (08:20)
[2018-01-08] MEDS: ASPIRIN 81 MG TAB PO (08:20)
[2018-01-08] MEDS: METOPROLOL (XL) 25 MG TAB PO (08:20)
[2018-01-08] MEDS: MAGNESIUM SULFATE 2 GM/50 ML 50 ML IVPB (08:21)
[2018-01-08 08:23] LABS: ALANINE AMINOTRANSFERASE 187 IU/L (13-69); ALBUMIN 3.2 g/dl (3.3-4.9); ALBUMIN/GLOBULIN RATIO 0.94; ALKALINE PHOSPHATASE 127 IU/L (42-121); ANION GAP 16 (8-16); ASPARTATE AMINO TRANSFERASE 330 IU/L (15-46); BILIRUBIN,INDIRECT 0.4 mg/dl (0-1.1); BILIRUBIN,TOTAL 0.4 mg/dl (0.2-1.3); BLOOD UREA NITROGEN 36 mg/dl (7-20); CALCIUM 8.5 mg/dl (8.4-10.2); CARBON DIOXIDE 32 mmol/L (21-31); CHLORIDE 97 mmol/L (97-110); GLUCOSE 82 mg/dl (70-220); POTASSIUM 4.5 mmol/L (3.5-5.1); SODIUM 140 mmol/L (135-144); TOTAL PROTEIN 6.6 g/dl (6.1-8.1)
[2018-01-08] MEDS: HYDROmorphONE 0.5 MG/0.5 ML SYG IV ×3 (08:28→20:39)
[2018-01-08 08:33] LABS: MAGNESIUM 1.6 mg/dl (1.7-2.5)
[2018-01-08] MEDS ORDERED: LEVALBUTEROL (NEB) 0.63 MG/3 ML AMP HHN (10:30)
[2018-01-08] MEDS: ALBUTEROL 0.083% (NEB) 2.5 MG/3 ML AMP HHN (16:29)
[2018-01-08] MEDS: ATORVASTATIN 10 MG TAB PO (20:42)
[2018-01-08] MEDS: INSULIN DETEMIR [LEVEMIR] (100 UNITS/ML) SYG SC (21:42)
[2018-01-09] MEDS: HYDROmorphONE 0.5 MG/0.5 ML SYG IV ×5 (01:02→18:02)
[2018-01-09] MEDS ORDERED: VITAMIN A & D 5 GM OINT PACKET TOP (01:04)
[2018-01-09] MEDS: IPRATROPIUM (NEB) 0.5 MG/2.5 ML AMP HHN ×5 (01:39→21:04)
[2018-01-09] MEDS: ACCU-CHEK XX (01:47)
[2018-01-09] MEDS: ONDANSETRON 4 MG INJ IV (05:10)
[2018-01-09] MEDS: PANTOPRAZOLE (EC) 40 MG TAB PO ×2 (05:11→18:03)
[2018-01-09] MEDS: INSULIN ASPART [NOVOLOG] 3 ML PEN SC ×4 (08:00→20:54)
[2018-01-09] MEDS: METOPROLOL (XL) 25 MG TAB PO (08:29)
[2018-01-09] MEDS: ASPIRIN 81 MG TAB PO (09:18)
[2018-01-09] MEDS: POTASSIUM CHLORIDE (SR) 20 MEQ TAB PO (09:19)
[2018-01-09] MEDS: FUROSEMIDE 40 MG TAB PO (09:19)
[2018-01-09] MEDS: metFORMIN 500 MG TAB PO ×2 (09:19→18:03)
[2018-01-09 09:34] LABS: ADD MAN DIFF? NO
[2018-01-09 09:37] LABS: BASOPHILS % 0.2 % (0.0-2.0); EOSINOPHILS % 0.2 % (0.0-7.0); HEMATOCRIT 44.3 % (37.0-47.0); HEMOGLOBIN 13.1 g/dl (12.0-16.0); LYMPHOCYTES # 1.9 10^3/ul (0.8-2.9); LYMPHOCYTES % 22.3 % (15.0-51.0); MEAN CORPUSCULAR HEMOGLOBIN 27.8 pg (29.0-33.0); MEAN CORPUSCULAR HGB CONC 29.6 g/dl (32.0-37.0); MEAN CORPUSCULAR VOLUME 94.1 fl (82.0-101.0); MEAN PLATELET VOLUME 11.6 fl (7.4-10.4); MONOCYTES % 11.8 % (0.0-11.0); NEUTROPHIL # 5.6 10^3/ul (1.6-7.5); NEUTROPHILS % 65.1 % (39.0-77.0); PLATELET COUNT 141 10^3/UL (140-415); RED BLOOD COUNT 4.71 10^6/ul (4.20-5.40)
[2018-01-09 09:37] LABS: WHITE BLOOD COUNT 8.6 10^3/ul (4.8-10.8)
[2018-01-09 10:16] LABS: ALANINE AMINOTRANSFERASE 325 IU/L (13-69); ALBUMIN 3.2 g/dl (3.3-4.9); ALBUMIN/GLOBULIN RATIO 0.96; ALKALINE PHOSPHATASE 118 IU/L (42-121); ANION GAP 10 (8-16); ASPARTATE AMINO TRANSFERASE 601 IU/L (15-46); BILIRUBIN,INDIRECT 0.3 mg/dl (0-1.1); BILIRUBIN,TOTAL 0.3 mg/dl (0.2-1.3); BLOOD UREA NITROGEN 27 mg/dl (7-20); CALCIUM 8.4 mg/dl (8.4-10.2); CARBON DIOXIDE 35 mmol/L (21-31); CHLORIDE 97 mmol/L (97-110); GLUCOSE 92 mg/dl (70-220); POTASSIUM 4.5 mmol/L (3.5-5.1); SODIUM 137 mmol/L (135-144); TOTAL PROTEIN 6.5 g/dl (6.1-8.1)
[2018-01-09 13:19] LABS: B-TYPE NATRIURETIC PEPTIDE 1510 PG/ML (0-125)
[2018-01-09] MEDS: ALBUTEROL 0.083% (NEB) 2.5 MG/3 ML AMP HHN (17:54)
[2018-01-09] MEDS: METHYLPREDNISOLONE 40 MG INJ IV (18:02)
[2018-01-09] MEDS: INSULIN DETEMIR [LEVEMIR] (100 UNITS/ML) SYG SC (20:51)
[2018-01-09] MEDS: ATORVASTATIN 10 MG TAB PO (20:52)
[2018-01-10] MEDS: IPRATROPIUM (NEB) 0.5 MG/2.5 ML AMP HHN ×6 (00:25→20:34)
[2018-01-10] MEDS: ACCU-CHEK XX (02:00)
[2018-01-10] MEDS: HYDROmorphONE 0.5 MG/0.5 ML SYG IV ×4 (06:01→18:55)
[2018-01-10] MEDS: PANTOPRAZOLE (EC) 40 MG TAB PO ×2 (06:01→18:22)
[2018-01-10] MEDS: HYDROCODONE/APAP (5/325) TAB PO (07:50)
[2018-01-10] MEDS: INSULIN ASPART [NOVOLOG] 3 ML PEN SC ×4 (08:08→20:56)
[2018-01-10] MEDS: metFORMIN 500 MG TAB PO ×2 (08:08→18:22)
[2018-01-10] MEDS: METHYLPREDNISOLONE 40 MG INJ IV (08:09)
[2018-01-10] MEDS: POTASSIUM CHLORIDE (SR) 20 MEQ TAB PO (08:09)
[2018-01-10] MEDS: ASPIRIN 81 MG TAB PO (08:09)
[2018-01-10] MEDS: FUROSEMIDE 40 MG TAB PO (08:11)
[2018-01-10] MEDS: LISINOPRIL 5 MG TAB PO (08:11)
[2018-01-10] MEDS: METOPROLOL (XL) 25 MG TAB PO (08:14)
[2018-01-10] MEDS: ATORVASTATIN 10 MG TAB PO (20:50)
[2018-01-10] MEDS: INSULIN DETEMIR [LEVEMIR] (100 UNITS/ML) SYG SC (21:20)
[2018-01-10] MEDS: LORAZEPAM 2 MG INJ IV (21:21)
[2018-01-11] MEDS: IPRATROPIUM (NEB) 0.5 MG/2.5 ML AMP HHN ×4 (01:07→13:00)
[2018-01-11] MEDS: ACCU-CHEK XX (02:00)
[2018-01-11] MEDS: PANTOPRAZOLE (EC) 40 MG TAB PO (06:40)
[2018-01-11] MEDS: metFORMIN 500 MG TAB PO (07:57)
[2018-01-11] MEDS: INSULIN ASPART [NOVOLOG] 3 ML PEN SC ×2 (08:03→12:25)
[2018-01-11] MEDS: METHYLPREDNISOLONE 40 MG INJ IV (09:03)
[2018-01-11] MEDS: ASPIRIN 81 MG TAB PO (09:03)
[2018-01-11] MEDS: HYDROmorphONE 0.5 MG/0.5 ML SYG IV ×2 (09:03→12:22)
[2018-01-11] MEDS: FUROSEMIDE 40 MG TAB PO (09:04)
[2018-01-11] MEDS: POTASSIUM CHLORIDE (SR) 20 MEQ TAB PO (09:04)
[2018-01-11] MEDS: LISINOPRIL 5 MG TAB PO (09:05)
[2018-01-11] MEDS: METOPROLOL (XL) 25 MG TAB PO (09:05)
[2018-01-11 09:12] LABS: ALANINE AMINOTRANSFERASE 213 IU/L (13-69); ALBUMIN 3.4 g/dl (3.3-4.9); ALBUMIN/GLOBULIN RATIO 0.97; ALKALINE PHOSPHATASE 112 IU/L (42-121); ANION GAP 14 (8-16); ASPARTATE AMINO TRANSFERASE 147 IU/L (15-46); BILIRUBIN,INDIRECT 0.3 mg/dl (0-1.1); BILIRUBIN,TOTAL 0.3 mg/dl (0.2-1.3); BLOOD UREA NITROGEN 21 mg/dl (7-20); CALCIUM 8.6 mg/dl (8.4-10.2); CARBON DIOXIDE 38 mmol/L (21-31); CHLORIDE 93 mmol/L (97-110); CREATININE 0.69 mg/dl (0.44-1.00); GLUCOSE 167 mg/dl (70-220); MAGNESIUM 1.4 mg/dl (1.7-2.5); POTASSIUM 4.9 mmol/L (3.5-5.1); SODIUM 140 mmol/L (135-144); TOTAL PROTEIN 6.9 g/dl (6.1-8.1)
[2018-01-11] MEDS: MAGNESIUM/AMINO ACIDS TAB PO (13:54)
[2018-01-11] MEDS ORDERED: FUROSEMIDE 40 MG TAB PO (21:00)
== END 2018-01-11 17:06 | disposition home or self-care (01) | DRG 291 ==
LOC: MS4 22:56
PROC: 5A09457 Assistance with Respiratory Ventilation, 24-96 Consecutive Hours, Continuous Positive Airway Pressure (ICD-10-PCS; principal; 2018-01-08)
DX: I13.0 Hypertensive heart and chronic kidney disease with heart failure and stage 1 through stage 4 chronic kidney disease, or unspecified chronic kidney disease (principal); J96.22 Acute and chronic respiratory failure with hypercapnia; I50.23 Acute on chronic systolic (congestive) heart failure; J44.1 Chronic obstructive pulmonary disease with (acute) exacerbation; Z68.43 Body mass index [BMI] 50.0-59.9, adult; N18.9 Chronic kidney disease, unspecified; E66.01 Morbid (severe) obesity due to excess calories; E11.22 Type 2 diabetes mellitus with diabetic chronic kidney disease; E78.5 Hyperlipidemia, unspecified; Z91.19 Patient's noncompliance with other medical treatment and regimen; I42.9 Cardiomyopathy, unspecified; K43.9 Ventral hernia without obstruction or gangrene; G47.30 Sleep apnea, unspecified
CPT/HCPCS: 80053; 82962; 83735; 83880; 85025; 87081; 94640; 94660; 97161

== ENCOUNTER 2018-04-29 10:40 | Emergency (ER) | payer BC ==
[2018-04-29] MEDS: HYDROCODONE/APAP (10/325) TAB PO (12:19)
== END 2018-04-29 16:33 | disposition home or self-care (01) ==
LOC: FTE 10:40
DX: S89.92XA Unspecified injury of left lower leg, initial encounter (principal); S79.912A Unspecified injury of left hip, initial encounter; I50.9 Heart failure, unspecified; J44.9 Chronic obstructive pulmonary disease, unspecified; I11.0 Hypertensive heart disease with heart failure; I25.10 Atherosclerotic heart disease of native coronary artery without angina pectoris; N18.9 Chronic kidney disease, unspecified; E11.22 Type 2 diabetes mellitus with diabetic chronic kidney disease; I12.9 Hypertensive chronic kidney disease with stage 1 through stage 4 chronic kidney disease, or unspecified chronic kidney disease; F17.210 Nicotine dependence, cigarettes, uncomplicated; R10.2 Pelvic and perineal pain; Y04.8XXA Assault by other bodily force, initial encounter; Z79.82 Long term (current) use of aspirin; Z79.4 Long term (current) use of insulin; Z79.01 Long term (current) use of anticoagulants
CPT/HCPCS: 72170; 73550; 73562; 81025; 99284-25

== ENCOUNTER 2018-06-18 18:34 | Inpatient (IN) | payer BC ==
[2018-06-18] MEDS ORDERED: BISACODYL (EC) 5 MG TAB PO (20:00)
[2018-06-18] MEDS ORDERED: ONDANSETRON 4 MG INJ IV (20:00)
[2018-06-18] MEDS ORDERED: ALBUTEROL/IPRATROPIUM (NEB) 3 ML AMP INH (20:00)
[2018-06-18] MEDS ORDERED: DOCUSATE SODIUM 100 MG CAP PO (20:00)
[2018-06-18] MEDS ORDERED: ACETAMINOPHEN 325 MG TAB PO (20:00)
[2018-06-18] MEDS ORDERED: INSULIN GLARGINE [LANtus] 3 ML PEN SC (21:00)
[2018-06-18] MEDS ORDERED: GLUCOSE GEL 15 GRAM TUBE BUCCAL (22:00)
[2018-06-18] MEDS ORDERED: GLUCOSE GEL 15 GRAM TUBE PO ×2 (22:00)
[2018-06-18] MEDS ORDERED: GLUCAGON 1 MG INJ IM (22:00)
[2018-06-18] MEDS ORDERED: DEXTROSE 50% 50 ML SYRINGE IV ×2 (22:00)
[2018-06-18] MEDS: ATORVASTATIN 10 MG TAB PO (22:16)
[2018-06-18] MEDS: QUETIAPINE 100 MG TAB PO (22:16)
[2018-06-18] MEDS: ZOLPIDEM 5 MG TAB PO (22:16)
[2018-06-18] MEDS: APIXABAN 5 MG TABLET PO (22:16)
[2018-06-18] MEDS: LISINOPRIL 5 MG TAB PO (22:17)
[2018-06-18] MEDS: HYDROCODONE/APAP (5/325) TAB PO (22:19)
[2018-06-18] MEDS: INSULIN ASPART [NOVOLOG] 3 ML PEN SC ×2 (22:20→23:09)
[2018-06-18] MEDS: INSULIN GLARGINE [LANTus] (100 UNITS/ML) SYG SC (22:28)
[2018-06-18] MEDS: ALBUTEROL/IPRATROPIUM (NEB) 3 ML AMP HHN (23:07)
[2018-06-19] MEDS: ALBUTEROL/IPRATROPIUM (NEB) 3 ML AMP HHN ×6 (01:36→20:53)
[2018-06-19] MEDS: ACCU-CHEK XX (02:07)
[2018-06-19] MEDS: PANTOPRAZOLE 40 MG INJ IV (05:40)
[2018-06-19 06:57] LABS: ADD MAN DIFF? NO
[2018-06-19 07:08] LABS: WHITE BLOOD COUNT 14.6 10^3/ul (4.8-10.8)
[2018-06-19 07:08] LABS: BASOPHILS % 0.1 % (0.0-2.0); EOSINOPHILS # 0.1 10^3/ul (0.0-0.5); EOSINOPHILS % 0.5 % (0.0-7.0); HEMATOCRIT 39.2 % (37.0-47.0); HEMOGLOBIN 12.1 g/dl (12.0-16.0); LYMPHOCYTES # 2.2 10^3/ul (0.8-2.9); LYMPHOCYTES % 15.2 % (15.0-51.0); MEAN CORPUSCULAR HEMOGLOBIN 29.2 pg (29.0-33.0); MEAN CORPUSCULAR HGB CONC 30.9 g/dl (32.0-37.0); MEAN CORPUSCULAR VOLUME 94.5 fl (82.0-101.0); MEAN PLATELET VOLUME 11.6 fl (7.4-10.4); MONOCYTE # 0.9 10^3/ul (0.3-0.9); MONOCYTES % 6.2 % (0.0-11.0); NEUTROPHIL # 11.4 10^3/ul (1.6-7.5); NEUTROPHILS % 77.7 % (39.0-77.0); PLATELET COUNT 260 10^3/UL (140-415); RED BLOOD COUNT 4.15 10^6/ul (4.20-5.40); RED CELL DISTRIBUTION WIDTH 14.7 % (11.5-14.5)
[2018-06-19 07:47] LABS: BLOOD UREA NITROGEN 28 mg/dl (7-20); CALCIUM 8.9 mg/dl (8.4-10.2); CHLORIDE 90 mmol/L (97-110); CREATININE 0.73 mg/dl (0.44-1.00); Estimated GFR > 60 mL/min (>60); GLUCOSE 200 mg/dl (70-220); POTASSIUM 4.4 mmol/L (3.5-5.1); SODIUM 138 mmol/L (135-144)
[2018-06-19 07:55] LABS: ANION GAP 7 (5-13)
[2018-06-19 07:57] LABS: CARBON DIOXIDE 41 mmol/L (21-31)
[2018-06-19] MEDS: INSULIN ASPART [NOVOLOG] 3 ML PEN SC ×5 (08:24→21:45)
[2018-06-19] MEDS: FUROSEMIDE 40 MG INJ IV ×2 (08:28→18:00)
[2018-06-19] MEDS: predniSONE 20 MG TAB PO (08:28)
[2018-06-19] MEDS: APIXABAN 5 MG TABLET PO ×2 (08:29→20:11)
[2018-06-19] MEDS: LISINOPRIL 5 MG TAB PO (08:29)
[2018-06-19] MEDS: QUETIAPINE 100 MG TAB PO (08:29)
[2018-06-19] MEDS: HYDROCODONE/APAP (5/325) TAB PO (08:34)
[2018-06-19] MEDS: ASPIRIN (EC) 81 MG TAB PO (08:37)
[2018-06-19] MEDS ORDERED: PANTOPRAZOLE (EC) 40 MG TAB PO (09:00)
[2018-06-19 10:06] LABS: AADO2 Arterial 26.8 mmHg (7.0-24.0); Allen Test ACCEPTAB; Arterial Base Excess 15.9 mmol/L (-3.0-3); Arterial Blood Gas Oxygen Sat 95.7 mmHG (95.0-98.0); Arterial COHb 1.2 % (0.0-3.0); Arterial Fraction of Oxyhgb 94.3 % (93.0-99.0); Arterial HCO3 44.4 mmol/L (22.0-26.0); Arterial MetHb 0.3 % (0.0-1.5); Arterial pCO2 72.3 mmhg (35-45); MODE NASAL CANNULA; Site Right Radial
[2018-06-19] MEDS: DIGOXIN 0.125 MG TAB PO (12:50)
[2018-06-19] MEDS: ACETAZOLAMIDE 500 MG INJ IV (17:17)
[2018-06-19] MEDS: HYDROmorphONE 0.5 MG/0.5 ML SYG IV (17:18)
[2018-06-19 19:30] LABS: TROPONIN-I < 0.012 ng/ml (0.000-0.120)
[2018-06-19 19:36] LABS: GLUCOSE 454 mg/dl (70-220)
[2018-06-19] MEDS: ATORVASTATIN 10 MG TAB PO (20:11)
[2018-06-19] MEDS: ZOLPIDEM 5 MG TAB PO (20:28)
[2018-06-19] MEDS: INSULIN GLARGINE [LANTus] (100 UNITS/ML) SYG SC (22:39)
[2018-06-20] MEDS: ALBUTEROL/IPRATROPIUM (NEB) 3 ML AMP HHN ×4 (01:00→14:25)
[2018-06-20 01:20] LABS: TROPONIN-I 0.017 ng/ml (0.000-0.120)
[2018-06-20] MEDS: ACCU-CHEK XX (02:24)
[2018-06-20] MEDS: PANTOPRAZOLE 40 MG INJ IV (05:37)
[2018-06-20] MEDS: FUROSEMIDE 40 MG INJ IV (05:40)
[2018-06-20] MEDS: HYDROCODONE/APAP (5/325) TAB PO (06:25)
[2018-06-20 06:48] LABS: ADD MAN DIFF? NO
[2018-06-20 06:55] LABS: BASOPHILS % 0.2 % (0.0-2.0); EOSINOPHILS # 0.2 10^3/ul (0.0-0.5); EOSINOPHILS % 1.4 % (0.0-7.0); HEMATOCRIT 45.3 % (37.0-47.0); HEMOGLOBIN 14.3 g/dl (12.0-16.0); LYMPHOCYTES # 2.7 10^3/ul (0.8-2.9); LYMPHOCYTES % 21.5 % (15.0-51.0); MEAN CORPUSCULAR HEMOGLOBIN 29.8 pg (29.0-33.0); MEAN CORPUSCULAR HGB CONC 31.6 g/dl (32.0-37.0); MEAN CORPUSCULAR VOLUME 94.4 fl (82.0-101.0); MEAN PLATELET VOLUME 11.6 fl (7.4-10.4); MONOCYTES % 7.9 % (0.0-11.0); NEUTROPHIL # 8.6 10^3/ul (1.6-7.5); NEUTROPHILS % 68.7 % (39.0-77.0); PLATELET COUNT 294 10^3/UL (140-415); RED CELL DISTRIBUTION WIDTH 14.7 % (11.5-14.5)
[2018-06-20 06:55] LABS: WHITE BLOOD COUNT 12.5 10^3/ul (4.8-10.8)
[2018-06-20 07:24] LABS: BLOOD UREA NITROGEN 27 mg/dl (7-20); CALCIUM 9.7 mg/dl (8.4-10.2); CHLORIDE 91 mmol/L (97-110); CREATININE 0.95 mg/dl (0.44-1.00); Estimated GFR > 60 mL/min (>60); GLUCOSE 143 mg/dl (70-220); POTASSIUM 4.6 mmol/L (3.5-5.1); SODIUM 140 mmol/L (135-144)
[2018-06-20 07:26] LABS: TROPONIN-I 0.022 ng/ml (0.000-0.120)
[2018-06-20 07:33] LABS: ANION GAP 10 (5-13); CARBON DIOXIDE 39 mmol/L (21-31)
[2018-06-20 07:44] LABS: MAGNESIUM 1.9 mg/dl (1.7-2.5)
[2018-06-20 07:44] LABS: PHOSPHORUS 5.3 mg/dl (2.5-4.9)
[2018-06-20] MEDS: INSULIN ASPART [NOVOLOG] 3 ML PEN SC ×4 (07:55→11:36)
[2018-06-20] MEDS: NPH, HUMAN INSULIN ISOPHANE 3ML VIAL SC (08:12)
[2018-06-20] MEDS: predniSONE 20 MG TAB PO (08:16)
[2018-06-20] MEDS: QUETIAPINE 100 MG TAB PO ×2 (08:16→08:20)
[2018-06-20] MEDS: APIXABAN 5 MG TABLET PO (08:16)
[2018-06-20] MEDS: METOPROLOL (XL) 25 MG TAB PO (08:17)
[2018-06-20] MEDS: LISINOPRIL 5 MG TAB PO (08:17)
[2018-06-20] MEDS: ASPIRIN (EC) 81 MG TAB PO (09:36)
[2018-06-20] MEDS: DIGOXIN 0.125 MG TAB PO (12:41)
[2018-06-20] MEDS ORDERED: QUETIAPINE 100 MG TAB PO (21:00)
[2018-06-21] MEDS ORDERED: SPIRONOLACTONE 25 MG TAB PO (06:00)
== END 2018-06-20 15:25 | disposition left against medical advice (07) | DRG 291 ==
LOC: TEL 18:34
PROVIDERS: Internal Medicine Nephrology
PROC: 4A033R1 Measurement of Arterial Saturation, Peripheral, Percutaneous Approach (ICD-10-PCS; principal; 2018-06-19)
DX: I11.0 Hypertensive heart disease with heart failure (principal); J96.92 Respiratory failure, unspecified with hypercapnia; Z68.43 Body mass index [BMI] 50.0-59.9, adult; E87.4 Mixed disorder of acid-base balance; J44.1 Chronic obstructive pulmonary disease with (acute) exacerbation; I48.92 Unspecified atrial flutter; I50.23 Acute on chronic systolic (congestive) heart failure; I48.0 Paroxysmal atrial fibrillation; I42.9 Cardiomyopathy, unspecified; E66.01 Morbid (severe) obesity due to excess calories; K46.9 Unspecified abdominal hernia without obstruction or gangrene; F14.10 Cocaine abuse, uncomplicated; E11.65 Type 2 diabetes mellitus with hyperglycemia; E78.5 Hyperlipidemia, unspecified; Z99.81 Dependence on supplemental oxygen; Z87.891 Personal history of nicotine dependence
CPT/HCPCS: 36600; 71045; 80048; 82803; 82947; 82962; 83735; 84100; 84484; 85025; 87081; 94640; 94664

== ENCOUNTER 2018-06-26 14:23 | Inpatient (IN) | payer BC ==
[2018-06-26] MEDS: ALBUTEROL 0.5% (NEB) 2.5 MG/0.5 ML AMP INH (15:26)
[2018-06-26] MEDS: IPRATROPIUM (NEB) 0.5 MG/2.5 ML AMP INH (15:26)
[2018-06-26 15:41] LABS: AADO2 Arterial 61.7 mmHg (7.0-24.0); Allen Test ACCEPTAB; Arterial Base Excess 8.3 mmol/L (-3.0-3); Arterial Blood Gas Oxygen Sat 94.7 mmHG (95.0-98.0); Arterial COHb 1.6 % (0.0-3.0); Arterial Fraction of Oxyhgb 92.9 % (93.0-99.0); Arterial HCO3 35.1 mmol/L (22.0-26.0); Arterial MetHb 0.3 % (0.0-1.5); Arterial pCO2 57.5 mmhg (35-45); MODE NASAL CANNULA; Site Right Radial
[2018-06-26] MEDS: OXYCODONE/ACETAMINOPHEN (5/325) TAB PO (16:19)
[2018-06-26] MEDS: METHYLPREDNISOLONE 125 MG INJ IV (16:20)
[2018-06-26] MEDS: FUROSEMIDE 40 MG INJ IV ×2 (16:21→20:44)
[2018-06-26] MEDS: LIDOCAINE 1% (MPF) 5 ML VIAL SC (16:30)
[2018-06-26] MEDS ORDERED: ONDANSETRON 4 MG INJ IV (17:00)
[2018-06-26] MEDS ORDERED: NACL 0.9% 3 ML SYG IV (17:00)
[2018-06-26] MEDS ORDERED: GLUCAGON 1 MG INJ IM (17:30)
[2018-06-26] MEDS ORDERED: GLUCOSE GEL 15 GRAM TUBE BUCCAL (17:30)
[2018-06-26] MEDS ORDERED: DEXTROSE 50% 50 ML SYRINGE IV ×2 (17:30)
[2018-06-26] MEDS ORDERED: GLUCOSE GEL 15 GRAM TUBE PO ×2 (17:30)
[2018-06-26] MEDS: LEVOFLOXACIN 750MG/D5W (PMX) 150 ML IVPB (17:52)
[2018-06-26 17:58] LABS: ABNORMAL IP MESSAGE 1; HEMATOCRIT 41.3 % (37.0-47.0); HEMOGLOBIN 13.1 g/dl (12.0-16.0); MEAN CORPUSCULAR HEMOGLOBIN 29.8 pg (29.0-33.0); MEAN CORPUSCULAR HGB CONC 31.7 g/dl (32.0-37.0); MEAN CORPUSCULAR VOLUME 93.9 fl (82.0-101.0); MEAN PLATELET VOLUME 11.5 fl (7.4-10.4); PLATELET COUNT 213 10^3/UL (140-415); RED CELL DISTRIBUTION WIDTH 15.1 % (11.5-14.5)
[2018-06-26 17:58] LABS: WHITE BLOOD COUNT 47.4 10^3/ul (4.8-10.8)
[2018-06-26 18:06] LABS: ADD MAN DIFF? YES; POSITIVE DIFF @See below
[2018-06-26 18:17] LABS: INR 1.09; PROTIME 14.3 Sec (11.9-14.9); PT RATIO 1.1
[2018-06-26 18:19] LABS: ALANINE AMINOTRANSFERASE 29 IU/L (13-69); ALBUMIN 3.2 g/dl (3.3-4.9); ALBUMIN/GLOBULIN RATIO 1.18; ALKALINE PHOSPHATASE 104 IU/L (42-121); ANION GAP 9 (5-13); ASPARTATE AMINO TRANSFERASE 29 IU/L (15-46); BILIRUBIN,INDIRECT 0.8 mg/dl (0-1.1); BILIRUBIN,TOTAL 0.8 mg/dl (0.2-1.3); BLOOD UREA NITROGEN 13 mg/dl (7-20); CALCIUM 8.9 mg/dl (8.4-10.2); CARBON DIOXIDE 35 mmol/L (21-31); CHLORIDE 94 mmol/L (97-110); CREATININE 0.59 mg/dl (0.44-1.00); Estimated GFR > 60 mL/min (>60); GLUCOSE 288 mg/dl (70-220); LIPASE 43 U/L (23-300); POTASSIUM 4.4 mmol/L (3.5-5.1); SODIUM 138 mmol/L (135-144); TOTAL PROTEIN 5.9 g/dl (6.1-8.1)
[2018-06-26 18:28] LABS: B-TYPE NATRIURETIC PEPTIDE 9510 PG/ML (0-125); TROPONIN-I 0.026 ng/ml (0.000-0.120)
[2018-06-26 18:57] LABS: ANISOCYTOSIS 1+ (0-0); BAND NEUTROPHILS #M 10.9 10^3/ul (0.0-0.6); BAND NEUTROPHILS % (M) 23 % (0-4); EOSINOPHILS % (M) 2 % (0-7); LYMPHOCYTES #M 1.4 10^3/ul (0.8-2.9); LYMPHOCYTES % (M) 3 % (15-51); METAMYELOCYTES #M 0.9 10^3/ul (0.0-0.0); METAMYELOCYTES %M 2 % (0-0); MONOCYTE #M 1.4 10^3/ul (0.3-0.9); MONOCYTES % (M) 3 % (0-11); PLATELET ESTIMATE NORMAL; POLYCHROMASIA 2+ (0-0); REACTIVE LYMPHOCYTES #M 0.9 10^3/ul (0.0-0.0); REACTIVE LYMPHOCYTES% (M) 2 % (0-0); SEGMENTED NEUTROPHILS (M) % 65 % (39-77); SMUDGE%M 2 % (0-0)
[2018-06-26] MEDS: ACETAMINOPHEN 325 MG TAB PO (20:44)
[2018-06-26] MEDS: ATORVASTATIN 10 MG TAB PO (20:44)
[2018-06-26] MEDS: ISOSORBIDE DINITRATE 10 MG TAB PO (20:45)
[2018-06-26] MEDS: ALBUTEROL/IPRATROPIUM (NEB) 3 ML AMP HHN (20:52)
[2018-06-26] MEDS: METHYLPREDNISOLONE 40 MG INJ IV (21:59)
[2018-06-26] MEDS: INSULIN GLARGINE [LANtus] 3 ML PEN SC (22:03)
[2018-06-26] MEDS: INSULIN ASPART [NOVOLOG] 3 ML PEN SC (22:13)
[2018-06-27 00:44] LABS: CREATINE KINASE 39 IU/L (23-200)
[2018-06-27 00:58] LABS: CK INDEX 3.3; CK-MB 1.28 ng/ml (0.0-2.4); TROPONIN-I 0.034 ng/ml (0.000-0.120)
[2018-06-27] MEDS: IPRATROPIUM (NEB) 0.5 MG/2.5 ML AMP HHN ×6 (01:19→21:09)
[2018-06-27] MEDS: LEVALBUTEROL (NEB) 1.25 MG/0.5 ML AMP HHN ×6 (01:19→21:09)
[2018-06-27] MEDS: ACCU-CHEK XX (01:38)
[2018-06-27] MEDS ORDERED: ACCU-CHEK XX (02:00)
[2018-06-27] MEDS: ACETAMINOPHEN 325 MG TAB PO (03:28)
[2018-06-27] MEDS: LORAZEPAM 1 MG TAB PO ×2 (03:34→20:15)
[2018-06-27] MEDS: PANTOPRAZOLE 40 MG INJ IV (05:30)
[2018-06-27] MEDS: METHYLPREDNISOLONE 40 MG INJ IV ×3 (05:31→22:27)
[2018-06-27 07:15] LABS: CREATINE KINASE 37 IU/L (23-200)
[2018-06-27 07:27] LABS: CK INDEX 3.9; CK-MB 1.44 ng/ml (0.0-2.4); TROPONIN-I 0.024 ng/ml (0.000-0.120)
[2018-06-27 07:41] LABS: ALANINE AMINOTRANSFERASE 19 IU/L (13-69); ALBUMIN 3.3 g/dl (3.3-4.9); ALBUMIN/GLOBULIN RATIO 1.13; ALKALINE PHOSPHATASE 106 IU/L (42-121); ANION GAP 12 (5-13); ASPARTATE AMINO TRANSFERASE 23 IU/L (15-46); BILIRUBIN,INDIRECT 0.5 mg/dl (0-1.1); BILIRUBIN,TOTAL 0.5 mg/dl (0.2-1.3); BLOOD UREA NITROGEN 17 mg/dl (7-20); CALCIUM 8.7 mg/dl (8.4-10.2); CARBON DIOXIDE 37 mmol/L (21-31); CHLORIDE 91 mmol/L (97-110); CREATININE 0.69 mg/dl (0.44-1.00); Estimated GFR > 60 mL/min (>60); GLUCOSE 345 mg/dl (70-220); MAGNESIUM 1.5 mg/dl (1.7-2.5); PHOSPHORUS 2.5 mg/dl (2.5-4.9); POTASSIUM 3.6 mmol/L (3.5-5.1); SODIUM 140 mmol/L (135-144); TOTAL PROTEIN 6.2 g/dl (6.1-8.1)
[2018-06-27] MEDS: INSULIN ASPART [NOVOLOG] 3 ML PEN SC ×7 (08:25→22:27)
[2018-06-27] MEDS: LISINOPRIL 5 MG TAB PO (09:00)
[2018-06-27] MEDS: ISOSORBIDE DINITRATE 10 MG TAB PO ×2 (09:19→13:30)
[2018-06-27] MEDS: FUROSEMIDE 40 MG INJ IV ×2 (09:19→13:30)
[2018-06-27] MEDS: ASPIRIN (EC) 81 MG TAB PO (09:19)
[2018-06-27] MEDS: DOCUSATE SODIUM 100 MG CAP PO (09:20)
[2018-06-27] MEDS: HYDROCODONE/APAP (5/325) TAB PO ×2 (10:42→22:27)
[2018-06-27] MEDS: DIGOXIN 0.125 MG TAB PO (13:30)
[2018-06-27 16:01] LABS: DIGOXIN < 0.4 ng/ml (1.0-2.0)
[2018-06-27] MEDS: LEVOFLOXACIN 750MG/D5W (PMX) 150 ML IVPB (18:08)
[2018-06-27 19:13] LABS: TROPONIN-I < 0.012 ng/ml (0.000-0.120)
[2018-06-27] MEDS: CEFEPIME 1GM/50 ML (PMX) 50 ML IVPB (20:15)
[2018-06-27] MEDS: ATORVASTATIN 10 MG TAB PO (20:15)
[2018-06-27] MEDS ORDERED: INSULIN GLARGINE [LANtus] 3 ML PEN SC (21:00)
[2018-06-27] MEDS: METOPROLOL (XL) 25 MG TAB PO (21:00)
[2018-06-27] MEDS: INSULIN GLARGINE [LANTus] (100 UNITS/ML) SYG SC (23:06)
[2018-06-28] MEDS: ZOLPIDEM 5 MG TAB PO (00:21)
[2018-06-28] MEDS: FUROSEMIDE 40 MG INJ IV ×4 (00:22→17:36)
[2018-06-28] MEDS: LEVALBUTEROL (NEB) 1.25 MG/0.5 ML AMP HHN ×6 (00:33→20:11)
[2018-06-28] MEDS: IPRATROPIUM (NEB) 0.5 MG/2.5 ML AMP HHN ×6 (00:33→20:11)
[2018-06-28 01:48] LABS: TROPONIN-I < 0.012 ng/ml (0.000-0.120)
[2018-06-28] MEDS: ACCU-CHEK XX (02:47)
[2018-06-28] MEDS: PANTOPRAZOLE 40 MG INJ IV (06:16)
[2018-06-28] MEDS: METHYLPREDNISOLONE 40 MG INJ IV ×3 (06:17→21:59)
[2018-06-28] MEDS: INSULIN ASPART [NOVOLOG] 3 ML PEN SC ×7 (07:06→21:52)
[2018-06-28 08:10] LABS: ABNORMAL IP MESSAGE 1; HEMATOCRIT 39.6 % (37.0-47.0); HEMOGLOBIN 12.4 g/dl (12.0-16.0); MEAN CORPUSCULAR HEMOGLOBIN 29.4 pg (29.0-33.0); MEAN CORPUSCULAR HGB CONC 31.3 g/dl (32.0-37.0); MEAN CORPUSCULAR VOLUME 93.8 fl (82.0-101.0); PLATELET COUNT 188 10^3/UL (140-415); RED BLOOD COUNT 4.22 10^6/ul (4.20-5.40); RED CELL DISTRIBUTION WIDTH 15.3 % (11.5-14.5)
[2018-06-28 08:11] LABS: POSITIVE DIFF @See below
[2018-06-28 08:12] LABS: ADD MAN DIFF? YES
[2018-06-28 08:32] LABS: PHOSPHORUS 2.8 mg/dl (2.5-4.9)
[2018-06-28 08:32] LABS: ANION GAP 5 (5-13); BLOOD UREA NITROGEN 29 mg/dl (7-20); CALCIUM 8.8 mg/dl (8.4-10.2); CARBON DIOXIDE 38 mmol/L (21-31); CHLORIDE 94 mmol/L (97-110); CREATININE 0.77 mg/dl (0.44-1.00); Estimated GFR > 60 mL/min (>60); MAGNESIUM 1.8 mg/dl (1.7-2.5); POTASSIUM 3.8 mmol/L (3.5-5.1); SODIUM 137 mmol/L (135-144)
[2018-06-28 08:33] LABS: GLUCOSE 433 mg/dl (70-220)
[2018-06-28 08:33] LABS: ANISOCYTOSIS 1+ (0-0); BAND NEUTROPHILS % (M) 9 % (0-4); GLUCOSE 433 mg/dl (70-220); LYMPHOCYTES #M 0.4 10^3/ul (0.8-2.9); LYMPHOCYTES % (M) 1 % (15-51); MONOCYTE #M 1.3 10^3/ul (0.3-0.9); MONOCYTES % (M) 3 % (0-11); PLATELET ESTIMATE NORMAL; POIKILOCYTOSIS 1+ (0-0); SEGMENTED NEUTROPHILS (M) % 87 % (39-77); SMUDGE%M 7 % (0-0); SPHEROCYTES 1+ (0-0)
[2018-06-28 08:40] LABS: TROPONIN-I < 0.012 ng/ml (0.000-0.120)
[2018-06-28] MEDS: DOCUSATE SODIUM 100 MG CAP PO (09:46)
[2018-06-28] MEDS: HYDROCODONE/APAP (5/325) TAB PO (09:46)
[2018-06-28] MEDS: ASPIRIN (EC) 81 MG TAB PO (09:46)
[2018-06-28] MEDS: LORAZEPAM 1 MG TAB PO (09:46)
[2018-06-28] MEDS: METOPROLOL (XL) 25 MG TAB PO ×2 (09:47→21:00)
[2018-06-28] MEDS: LISINOPRIL 5 MG TAB PO (09:47)
[2018-06-28] MEDS: CEFEPIME 1GM/50 ML (PMX) 50 ML IVPB ×2 (09:48→21:39)
[2018-06-28] MEDS: DIGOXIN 0.125 MG TAB PO (14:22)
[2018-06-28 15:02] LABS: GLUCOSE 540 mg/dl (70-220)
[2018-06-28] MEDS: HYDROmorphONE 0.5 MG/0.5 ML SYG IV ×2 (15:29→21:53)
[2018-06-28] MEDS ORDERED: [UNRECOGNIZED DRUG - REMARK] XX (15:30)
[2018-06-28] MEDS: [UNRECOGNIZED DRUG - REMARK] XX (15:30)
[2018-06-28] MEDS ORDERED: FUROSEMIDE 40 MG INJ (16:29)
[2018-06-28] MEDS: NPH, HUMAN INSULIN ISOPHANE 3ML VIAL SC ×2 (16:54→22:12)
[2018-06-28] MEDS ORDERED: INSULIN ASPART [NOVOLOG] 3 ML PEN SC (17:55)
[2018-06-28] MEDS: ATORVASTATIN 10 MG TAB PO (21:39)
[2018-06-28] MEDS: INSULIN GLARGINE [LANTus] (100 UNITS/ML) SYG SC (21:53)
[2018-06-29] MEDS: HYDROCODONE/APAP (5/325) TAB PO (01:27)
[2018-06-29] MEDS: LORAZEPAM 1 MG TAB PO ×2 (01:33→21:18)
[2018-06-29] MEDS: LEVALBUTEROL (NEB) 1.25 MG/0.5 ML AMP HHN ×6 (01:55→21:20)
[2018-06-29] MEDS: IPRATROPIUM (NEB) 0.5 MG/2.5 ML AMP HHN ×6 (01:55→21:20)
[2018-06-29] MEDS: ACCU-CHEK XX (02:00)
[2018-06-29] MEDS ORDERED: ACCU-CHEK XX (02:00)
[2018-06-29] MEDS: PANTOPRAZOLE (EC) 40 MG TAB PO (05:36)
[2018-06-29] MEDS: LEVOFLOXACIN 500 MG TAB PO (05:36)
[2018-06-29] MEDS: METHYLPREDNISOLONE 40 MG INJ IV ×3 (05:36→21:39)
[2018-06-29] MEDS: FUROSEMIDE 40 MG INJ IV ×2 (05:37→17:53)
[2018-06-29] MEDS: HYDROmorphONE 0.5 MG/0.5 ML SYG IV ×3 (06:00→17:53)
[2018-06-29] MEDS: NPH, HUMAN INSULIN ISOPHANE 3ML VIAL SC ×3 (06:03→21:45)
[2018-06-29 06:05] LABS: ADD MAN DIFF? NO
[2018-06-29 06:07] LABS: WHITE BLOOD COUNT 36.1 10^3/ul (4.8-10.8)
[2018-06-29 06:07] LABS: ABNORMAL IP MESSAGE 1; BASOPHIL # 0.1 10^3/ul (0.0-0.1); BASOPHILS % 0.2 % (0.0-2.0); HEMATOCRIT 38.9 % (37.0-47.0); HEMOGLOBIN 12.3 g/dl (12.0-16.0); LYMPHOCYTES # 1.6 10^3/ul (0.8-2.9); LYMPHOCYTES % 4.4 % (15.0-51.0); MEAN CORPUSCULAR HEMOGLOBIN 29.9 pg (29.0-33.0); MEAN CORPUSCULAR HGB CONC 31.6 g/dl (32.0-37.0); MEAN CORPUSCULAR VOLUME 94.4 fl (82.0-101.0); MEAN PLATELET VOLUME 11.8 fl (7.4-10.4); MONOCYTE # 1.2 10^3/ul (0.3-0.9); MONOCYTES % 3.2 % (0.0-11.0); NEUTROPHIL # 32.4 10^3/ul (1.6-7.5); NEUTROPHILS % 89.8 % (39.0-77.0); PLATELET COUNT 177 10^3/UL (140-415); RED BLOOD COUNT 4.12 10^6/ul (4.20-5.40); RED CELL DISTRIBUTION WIDTH 15.3 % (11.5-14.5)
[2018-06-29 06:18] LABS: POSITIVE DIFF @See below
[2018-06-29 06:30] LABS: BLOOD UREA NITROGEN 30 mg/dl (7-20); CALCIUM 8.7 mg/dl (8.4-10.2); CHLORIDE 95 mmol/L (97-110); CREATININE 0.68 mg/dl (0.44-1.00); Estimated GFR > 60 mL/min (>60); GLUCOSE 146 mg/dl (70-220); POTASSIUM 3.5 mmol/L (3.5-5.1); SODIUM 140 mmol/L (135-144)
[2018-06-29 06:48] LABS: ANION GAP 5 (5-13)
[2018-06-29 06:50] LABS: CARBON DIOXIDE 40 mmol/L (21-31)
[2018-06-29] MEDS: CEFEPIME 1GM/50 ML (PMX) 50 ML IVPB (08:17)
[2018-06-29] MEDS: ASPIRIN (EC) 81 MG TAB PO (08:17)
[2018-06-29] MEDS: LISINOPRIL 5 MG TAB PO (08:19)
[2018-06-29] MEDS: METOPROLOL (XL) 25 MG TAB PO ×2 (08:20→20:53)
[2018-06-29] MEDS: INSULIN ASPART [NOVOLOG] 3 ML PEN SC ×7 (08:31→21:03)
[2018-06-29] MEDS: DIGOXIN 0.125 MG TAB PO (13:50)
[2018-06-29] MEDS: AMPICILLIN/SULB 3 GM/NS (PMX) 100 ML IVPB ×2 (13:50→18:58)
[2018-06-29] MEDS: LINAGLIPTIN 5 MG TABLET PO (16:30)
[2018-06-29] MEDS: ATORVASTATIN 10 MG TAB PO (20:50)
[2018-06-29] MEDS: INSULIN GLARGINE [LANTus] (100 UNITS/ML) SYG SC (21:03)
[2018-06-30] MEDS: LEVALBUTEROL (NEB) 1.25 MG/0.5 ML AMP HHN ×6 (00:01→21:08)
[2018-06-30] MEDS: IPRATROPIUM (NEB) 0.5 MG/2.5 ML AMP HHN ×6 (00:01→21:08)
[2018-06-30] MEDS: AMPICILLIN/SULB 3 GM/NS (PMX) 100 ML IVPB ×4 (00:51→17:39)
[2018-06-30] MEDS: ACCU-CHEK XX (02:43)
[2018-06-30] MEDS: METHYLPREDNISOLONE 40 MG INJ IV ×3 (06:26→21:41)
[2018-06-30] MEDS: PANTOPRAZOLE (EC) 40 MG TAB PO (06:27)
[2018-06-30] MEDS: FUROSEMIDE 40 MG INJ IV (06:27)
[2018-06-30 06:30] LABS: ADD MAN DIFF? NO
[2018-06-30 06:31] LABS: BASOPHIL # 0.1 10^3/ul (0.0-0.1); BASOPHILS % 0.3 % (0.0-2.0); EOSINOPHILS % 0.2 % (0.0-7.0); HEMATOCRIT 44.4 % (37.0-47.0); HEMOGLOBIN 13.4 g/dl (12.0-16.0); LYMPHOCYTES # 2.9 10^3/ul (0.8-2.9); LYMPHOCYTES % 15.3 % (15.0-51.0); MEAN CORPUSCULAR HEMOGLOBIN 29.3 pg (29.0-33.0); MEAN CORPUSCULAR HGB CONC 30.2 g/dl (32.0-37.0); MEAN CORPUSCULAR VOLUME 97.2 fl (82.0-101.0); MEAN PLATELET VOLUME 11.9 fl (7.4-10.4); NEUTROPHILS % 78.4 % (39.0-77.0); PLATELET COUNT 188 10^3/UL (140-415); RED BLOOD COUNT 4.57 10^6/ul (4.20-5.40); RED CELL DISTRIBUTION WIDTH 15.2 % (11.5-14.5)
[2018-06-30 06:31] LABS: WHITE BLOOD COUNT 19.1 10^3/ul (4.8-10.8)
[2018-06-30] MEDS: NPH, HUMAN INSULIN ISOPHANE 3ML VIAL SC ×3 (06:35→21:53)
[2018-06-30] MEDS: HYDROmorphONE 0.5 MG/0.5 ML SYG IV ×3 (06:37→18:40)
[2018-06-30 07:20] LABS: BLOOD UREA NITROGEN 29 mg/dl (7-20); CALCIUM 9.2 mg/dl (8.4-10.2); CHLORIDE 93 mmol/L (97-110); CREATININE 0.72 mg/dl (0.44-1.00); Estimated GFR > 60 mL/min (>60); GLUCOSE 108 mg/dl (70-220); POTASSIUM 3.8 mmol/L (3.5-5.1); SODIUM 142 mmol/L (135-144)
[2018-06-30 07:52] LABS: ANION GAP 7 (5-13); CARBON DIOXIDE 42 mmol/L (21-31)
[2018-06-30] MEDS: INSULIN ASPART [NOVOLOG] 3 ML PEN SC ×7 (07:55→21:53)
[2018-06-30] MEDS: ASPIRIN (EC) 81 MG TAB PO (08:17)
[2018-06-30] MEDS: LINAGLIPTIN 5 MG TABLET PO (08:17)
[2018-06-30] MEDS: METOPROLOL (XL) 25 MG TAB PO ×2 (08:17→21:39)
[2018-06-30] MEDS: LISINOPRIL 5 MG TAB PO (08:17)
[2018-06-30] MEDS: DIGOXIN 0.125 MG TAB PO (12:25)
[2018-06-30] MEDS: ACETAZOLAMIDE 250 MG TAB PO (21:37)
[2018-06-30] MEDS: ATORVASTATIN 10 MG TAB PO (21:38)
[2018-06-30] MEDS: HYDROCODONE/APAP (5/325) TAB PO (21:39)
[2018-06-30] MEDS: INSULIN GLARGINE [LANTus] (100 UNITS/ML) SYG SC (21:53)
[2018-07-01] MEDS: AMPICILLIN/SULB 3 GM/NS (PMX) 100 ML IVPB ×4 (00:40→17:34)
[2018-07-01] MEDS: HYDROmorphONE 0.5 MG/0.5 ML SYG IV ×4 (00:42→19:34)
[2018-07-01] MEDS: LEVALBUTEROL (NEB) 1.25 MG/0.5 ML AMP HHN ×6 (00:50→20:39)
[2018-07-01] MEDS: IPRATROPIUM (NEB) 0.5 MG/2.5 ML AMP HHN ×6 (00:50→20:39)
[2018-07-01] MEDS: ACCU-CHEK XX (02:00)
[2018-07-01] MEDS: METHYLPREDNISOLONE 40 MG INJ IV ×3 (06:11→20:53)
[2018-07-01] MEDS: PANTOPRAZOLE (EC) 40 MG TAB PO (06:11)
[2018-07-01] MEDS: NPH, HUMAN INSULIN ISOPHANE 3ML VIAL SC ×3 (06:25→20:54)
[2018-07-01 07:09] LABS: ANION GAP 9 (5-13); BLOOD UREA NITROGEN 26 mg/dl (7-20); CALCIUM 9.4 mg/dl (8.4-10.2); CARBON DIOXIDE 35 mmol/L (21-31); CHLORIDE 94 mmol/L (97-110); CREATININE 0.69 mg/dl (0.44-1.00); Estimated GFR > 60 mL/min (>60); GLUCOSE 305 mg/dl (70-220); POTASSIUM 4.7 mmol/L (3.5-5.1); SODIUM 138 mmol/L (135-144)
[2018-07-01] MEDS: INSULIN ASPART [NOVOLOG] 3 ML PEN SC ×7 (08:17→20:54)
[2018-07-01] MEDS: LINAGLIPTIN 5 MG TABLET PO (08:18)
[2018-07-01] MEDS: ACETAZOLAMIDE 250 MG TAB PO ×2 (11:42→20:47)
[2018-07-01] MEDS: FUROSEMIDE 40 MG INJ IV (11:44)
[2018-07-01] MEDS: METOPROLOL (XL) 25 MG TAB PO ×2 (11:47→20:48)
[2018-07-01] MEDS: LISINOPRIL 5 MG TAB PO (11:47)
[2018-07-01] MEDS: ASPIRIN (EC) 81 MG TAB PO (11:47)
[2018-07-01] MEDS: HYDROCODONE/APAP (5/325) TAB PO ×2 (11:48→23:32)
[2018-07-01] MEDS: DIGOXIN 0.125 MG TAB PO (13:11)
[2018-07-01] MEDS: ACETAMINOPHEN 325 MG TAB PO ×2 (17:34→18:33)
[2018-07-01] MEDS: LORAZEPAM 1 MG TAB PO (17:36)
[2018-07-01] MEDS: ATORVASTATIN 10 MG TAB PO (20:47)
[2018-07-01] MEDS: INSULIN GLARGINE [LANTus] (100 UNITS/ML) SYG SC (21:07)
[2018-07-02] MEDS: IPRATROPIUM (NEB) 0.5 MG/2.5 ML AMP HHN ×6 (01:06→21:00)
[2018-07-02] MEDS: LEVALBUTEROL (NEB) 1.25 MG/0.5 ML AMP HHN ×6 (01:06→21:00)
[2018-07-02] MEDS: AMPICILLIN/SULB 3 GM/NS (PMX) 100 ML IVPB ×4 (01:15→17:37)
[2018-07-02] MEDS: ACCU-CHEK XX (01:15)
[2018-07-02] MEDS: HYDROmorphONE 0.5 MG/0.5 ML SYG IV ×4 (01:23→21:52)
[2018-07-02] MEDS: INSULIN ASPART [NOVOLOG] 3 ML PEN SC ×8 (04:40→21:09)
[2018-07-02] MEDS: PANTOPRAZOLE (EC) 40 MG TAB PO (05:58)
[2018-07-02] MEDS: METHYLPREDNISOLONE 40 MG INJ IV (05:59)
[2018-07-02] MEDS: NPH, HUMAN INSULIN ISOPHANE 3ML VIAL SC (06:03)
[2018-07-02 06:10] LABS: ADD MAN DIFF? NO
[2018-07-02 06:21] LABS: BASOPHIL # 0.1 10^3/ul (0.0-0.1); BASOPHILS % 0.3 % (0.0-2.0); EOSINOPHILS % 0.1 % (0.0-7.0); HEMATOCRIT 40.9 % (37.0-47.0); HEMOGLOBIN 12.8 g/dl (12.0-16.0); LYMPHOCYTES # 1.9 10^3/ul (0.8-2.9); LYMPHOCYTES % 8.3 % (15.0-51.0); MEAN CORPUSCULAR HEMOGLOBIN 29.6 pg (29.0-33.0); MEAN CORPUSCULAR HGB CONC 31.3 g/dl (32.0-37.0); MEAN CORPUSCULAR VOLUME 94.7 fl (82.0-101.0); MEAN PLATELET VOLUME 11.5 fl (7.4-10.4); MONOCYTE # 0.9 10^3/ul (0.3-0.9); NEUTROPHIL # 19.4 10^3/ul (1.6-7.5); NEUTROPHILS % 86.1 % (39.0-77.0); PLATELET COUNT 196 10^3/UL (140-415); RED BLOOD COUNT 4.32 10^6/ul (4.20-5.40); RED CELL DISTRIBUTION WIDTH 14.7 % (11.5-14.5)
[2018-07-02 06:21] LABS: WHITE BLOOD COUNT 22.5 10^3/ul (4.8-10.8)
[2018-07-02 06:38] LABS: ANION GAP 9 (5-13); BLOOD UREA NITROGEN 31 mg/dl (7-20); CALCIUM 9.3 mg/dl (8.4-10.2); CARBON DIOXIDE 30 mmol/L (21-31); CHLORIDE 97 mmol/L (97-110); Estimated GFR > 60 mL/min (>60); GLUCOSE 397 mg/dl (70-220); MAGNESIUM 1.9 mg/dl (1.7-2.5); PHOSPHORUS 4.4 mg/dl (2.5-4.9); POTASSIUM 4.7 mmol/L (3.5-5.1); SODIUM 136 mmol/L (135-144)
[2018-07-02] MEDS: ASPIRIN (EC) 81 MG TAB PO (08:38)
[2018-07-02] MEDS: LISINOPRIL 5 MG TAB PO (08:38)
[2018-07-02] MEDS: METOPROLOL (XL) 25 MG TAB PO ×2 (08:38→20:58)
[2018-07-02] MEDS: ACETAZOLAMIDE 250 MG TAB PO (08:38)
[2018-07-02] MEDS: FUROSEMIDE 40 MG INJ IV (08:39)
[2018-07-02] MEDS: LINAGLIPTIN 5 MG TABLET PO (08:39)
[2018-07-02] MEDS: DIGOXIN 0.125 MG TAB PO (12:05)
[2018-07-02] MEDS: LORAZEPAM 1 MG TAB PO (12:05)
[2018-07-02] MEDS: HYDROCODONE/APAP (5/325) TAB PO (12:06)
[2018-07-02] MEDS: [UNRECOGNIZED DRUG - REMARK] XX (14:35)
[2018-07-02] MEDS: ATORVASTATIN 10 MG TAB PO (21:03)
[2018-07-02] MEDS: INSULIN GLARGINE [LANTus] (100 UNITS/ML) SYG SC (21:09)
[2018-07-03] MEDS: AMPICILLIN/SULB 3 GM/NS (PMX) 100 ML IVPB ×4 (00:26→18:00)
[2018-07-03] MEDS: IPRATROPIUM (NEB) 0.5 MG/2.5 ML AMP HHN ×5 (01:00→16:43)
[2018-07-03] MEDS: LEVALBUTEROL (NEB) 1.25 MG/0.5 ML AMP HHN ×5 (01:00→16:41)
[2018-07-03] MEDS: HYDROCODONE/APAP (5/325) TAB PO ×2 (01:57→16:07)
[2018-07-03] MEDS: ACCU-CHEK XX (02:00)
[2018-07-03] MEDS: HYDROmorphONE 0.5 MG/0.5 ML SYG IV ×4 (05:52→17:14)
[2018-07-03] MEDS: PANTOPRAZOLE (EC) 40 MG TAB PO (06:15)
[2018-07-03 06:19] LABS: ADD MAN DIFF? NO
[2018-07-03 06:25] LABS: BASOPHILS % 0.1 % (0.0-2.0); EOSINOPHILS # 0.1 10^3/ul (0.0-0.5); EOSINOPHILS % 0.9 % (0.0-7.0); HEMATOCRIT 41.5 % (37.0-47.0); HEMOGLOBIN 13.3 g/dl (12.0-16.0); LYMPHOCYTES # 3.4 10^3/ul (0.8-2.9); LYMPHOCYTES % 21.4 % (15.0-51.0); MEAN CORPUSCULAR HEMOGLOBIN 29.8 pg (29.0-33.0); MEAN CORPUSCULAR VOLUME 92.8 fl (82.0-101.0); MEAN PLATELET VOLUME 11.4 fl (7.4-10.4); MONOCYTE # 1.1 10^3/ul (0.3-0.9); MONOCYTES % 6.6 % (0.0-11.0); NEUTROPHIL # 10.8 10^3/ul (1.6-7.5); NEUTROPHILS % 68.2 % (39.0-77.0); PLATELET COUNT 230 10^3/UL (140-415); RED BLOOD COUNT 4.47 10^6/ul (4.20-5.40); RED CELL DISTRIBUTION WIDTH 14.9 % (11.5-14.5)
[2018-07-03 06:25] LABS: WHITE BLOOD COUNT 15.9 10^3/ul (4.8-10.8)
[2018-07-03 06:47] LABS: ANION GAP 8 (5-13); BLOOD UREA NITROGEN 32 mg/dl (7-20); CALCIUM 9.4 mg/dl (8.4-10.2); CARBON DIOXIDE 34 mmol/L (21-31); CHLORIDE 101 mmol/L (97-110); CREATININE 0.91 mg/dl (0.44-1.00); Estimated GFR > 60 mL/min (>60); GLUCOSE 108 mg/dl (70-220); POTASSIUM 4.2 mmol/L (3.5-5.1); SODIUM 143 mmol/L (135-144)
[2018-07-03 07:04] LABS: MAGNESIUM 1.9 mg/dl (1.7-2.5)
[2018-07-03] MEDS: INSULIN ASPART [NOVOLOG] 3 ML PEN SC ×6 (07:55→17:21)
[2018-07-03] MEDS: METHYLPREDNISOLONE 40 MG INJ IV (08:38)
[2018-07-03] MEDS: METOPROLOL (XL) 25 MG TAB PO (09:00)
[2018-07-03] MEDS: LINAGLIPTIN 5 MG TABLET PO (09:07)
[2018-07-03] MEDS: LISINOPRIL 5 MG TAB PO (09:08)
[2018-07-03] MEDS: ASPIRIN (EC) 81 MG TAB PO (09:08)
[2018-07-03] MEDS: FUROSEMIDE 40 MG INJ IV (09:10)
[2018-07-03] MEDS: NPH, HUMAN INSULIN ISOPHANE 3ML VIAL SC (09:21)
[2018-07-03] MEDS: DIGOXIN 0.125 MG TAB PO (13:25)
== END 2018-07-03 19:02 | disposition home or self-care (01) | DRG 871 ==
LOC: TEL 06-28 00:15 → E/R 14:23 → TEL 16:15
PROC: 02H633Z Insertion of Infusion Device into Right Atrium, Percutaneous Approach (ICD-10-PCS; principal; 2018-06-26)
DX: A41.9 Sepsis, unspecified organism (principal); I50.43 Acute on chronic combined systolic (congestive) and diastolic (congestive) heart failure; J15.4 Pneumonia due to other streptococci; J44.0 Chronic obstructive pulmonary disease with (acute) lower respiratory infection; J44.1 Chronic obstructive pulmonary disease with (acute) exacerbation; Z68.43 Body mass index [BMI] 50.0-59.9, adult; J96.11 Chronic respiratory failure with hypoxia; I42.9 Cardiomyopathy, unspecified; R04.2 Hemoptysis; Z91.14 Patient's other noncompliance with medication regimen; R65.20 Severe sepsis without septic shock; I11.0 Hypertensive heart disease with heart failure; F31.9 Bipolar disorder, unspecified; Z87.891 Personal history of nicotine dependence; E66.01 Morbid (severe) obesity due to excess calories; E11.9 Type 2 diabetes mellitus without complications; K43.9 Ventral hernia without obstruction or gangrene; I48.2 Chronic atrial fibrillation; Z79.02 Long term (current) use of antithrombotics/antiplatelets; K59.00 Constipation, unspecified
CPT/HCPCS: 36415; 36569; 36600; 71045; 76937; 80048; 80053; 80162; 82550; 82553; 82803; 82947; 82962; 83690; 83735; 83880; 84100; 84484; 85025; 85610; 85730; 87040; 87070; 87081; 87400; 93005; 93306; 94640; 94644; 94660; 94664; 99291-25

== ENCOUNTER 2018-08-13 15:15 | Inpatient (IN) | payer BC ==
[2018-08-13 15:34] LABS: ADD MAN DIFF? NO
[2018-08-13 15:39] LABS: WHITE BLOOD COUNT 9.3 10^3/ul (4.8-10.8)
[2018-08-13 15:39] LABS: BASOPHIL # 0.1 10^3/ul (0.0-0.1); BASOPHILS % 0.6 % (0.0-2.0); EOSINOPHILS # 0.1 10^3/ul (0.0-0.5); EOSINOPHILS % 1.2 % (0.0-7.0); HEMATOCRIT 42.5 % (37.0-47.0); HEMOGLOBIN 12.8 g/dl (12.0-16.0); LYMPHOCYTES # 2.3 10^3/ul (0.8-2.9); LYMPHOCYTES % 24.3 % (15.0-51.0); MEAN CORPUSCULAR HEMOGLOBIN 29.7 pg (29.0-33.0); MEAN CORPUSCULAR HGB CONC 30.1 g/dl (32.0-37.0); MEAN CORPUSCULAR VOLUME 98.6 fl (82.0-101.0); MEAN PLATELET VOLUME 11.4 fl (7.4-10.4); MONOCYTE # 0.6 10^3/ul (0.3-0.9); MONOCYTES % 6.1 % (0.0-11.0); NEUTROPHIL # 6.3 10^3/ul (1.6-7.5); NEUTROPHILS % 67.5 % (39.0-77.0); PLATELET COUNT 243 10^3/UL (140-415); RED BLOOD COUNT 4.31 10^6/ul (4.20-5.40); RED CELL DISTRIBUTION WIDTH 14.1 % (11.5-14.5)
[2018-08-13] MEDS: IPRATROPIUM (NEB) 0.5 MG/2.5 ML AMP INH (15:40)
[2018-08-13] MEDS: ALBUTEROL 0.5% (NEB) 2.5 MG/0.5 ML AMP INH (15:40)
[2018-08-13 16:04] LABS: BLOOD UREA NITROGEN 13 mg/dl (7-20); CALCIUM 9.3 mg/dl (8.4-10.2); CHLORIDE 96 mmol/L (97-110); CREATININE 0.58 mg/dl (0.44-1.00); Estimated GFR > 60 mL/min (>60); GLUCOSE 262 mg/dl (70-220); POTASSIUM 4.3 mmol/L (3.5-5.1); SODIUM 140 mmol/L (135-144)
[2018-08-13 16:12] LABS: ANION GAP 2 (5-13); CARBON DIOXIDE 42 mmol/L (21-31)
[2018-08-13 16:16] LABS: B-TYPE NATRIURETIC PEPTIDE 1380 PG/ML (0-125); TROPONIN-I < 0.012 ng/ml (0.000-0.120)
[2018-08-13 16:51] LABS: INR 0.91; PROTIME 12.4 Sec (11.9-14.9)
[2018-08-13 17:50] LABS: AADO2 Arterial 54.8 mmHg (7.0-24.0); Allen Test ACCEPTAB; Arterial Base Excess 5.1 mmol/L (-3.0-3); Arterial Blood Gas Oxygen Sat 94.1 mmHG (95.0-98.0); Arterial Fraction of Oxyhgb 92.9 % (93.0-99.0); Arterial HCO3 33.5 mmol/L (22.0-26.0); Arterial MetHb 0.3 % (0.0-1.5); Arterial pCO2 67.4 mmhg (35-45); MODE NASAL CANNULA; Site Right Radial
[2018-08-13] MEDS: METHYLPREDNISOLONE 125 MG INJ IV (18:04)
[2018-08-13] MEDS: LORAZEPAM 2 MG INJ IV (18:06)
[2018-08-13] MEDS: FENTAnyl 50 MCG/ML VIAL IV ×2 (18:06→21:19)
[2018-08-13] MEDS ORDERED: ACETAMINOPHEN 325 MG TAB PO (19:00)
[2018-08-13] MEDS ORDERED: ONDANSETRON 4 MG INJ IV (19:00)
[2018-08-13 20:11] LABS: LACTIC ACID 2.5 mmol/L (0.5-2.0)
[2018-08-13 20:36] LABS: AADO2 Arterial 107.6 mmHg (7.0-24.0); Allen Test ACCEPTAB; Arterial Base Excess 12.9 mmol/L (-3.0-3); Arterial Blood Gas Oxygen Sat 91.5 mmHG (95.0-98.0); Arterial COHb 0.8 % (0.0-3.0); Arterial Fraction of Oxyhgb 90.4 % (93.0-99.0); Arterial HCO3 40.9 mmol/L (22.0-26.0); Arterial MetHb 0.4 % (0.0-1.5); Arterial pCO2 68.3 mmhg (35-45); Blood Gas IEPAP 14/5; MODE MASK - BIPAP; Site Right Radial
[2018-08-13] MEDS: LEVOFLOXACIN 750MG/D5W (PMX) 150 ML IVPB (21:01)
[2018-08-13] MEDS: MAGNESIUM SULFATE 2 GM/50 ML 50 ML IVPB (21:19)
[2018-08-14] MEDS ORDERED: ALBUTEROL/IPRATROPIUM (NEB) 3 ML AMP HHN
[2018-08-14] MEDS: LORAZEPAM 0.5 MG TAB PO (00:48)
[2018-08-14] MEDS ORDERED: GLUCAGON 1 MG INJ IM (01:00)
[2018-08-14] MEDS ORDERED: GLUCOSE GEL 15 GRAM TUBE PO ×2 (01:00)
[2018-08-14] MEDS ORDERED: GLUCOSE GEL 15 GRAM TUBE BUCCAL (01:00)
[2018-08-14] MEDS ORDERED: DEXTROSE 50% 50 ML SYRINGE IV ×2 (01:00)
[2018-08-14] MEDS: ALBUTEROL/IPRATROPIUM (NEB) 3 ML AMP HHN ×6 (01:41→20:35)
[2018-08-14] MEDS: ACCU-CHEK XX (02:23)
[2018-08-14] MEDS: INSULIN ASPART [NOVOLOG] 3 ML PEN SC ×5 (04:32→21:40)
[2018-08-14] MEDS: INSULIN GLARGINE [LANTus] (100 UNITS/ML) SYG SC ×2 (04:32→21:40)
[2018-08-14] MEDS: GUAIFENESIN/DM 5ML CUP PO (04:40)
[2018-08-14] MEDS: PANTOPRAZOLE (EC) 40 MG TAB PO (05:52)
[2018-08-14] MEDS: LEVOFLOXACIN 500 MG TAB PO (05:52)
[2018-08-14] MEDS ORDERED: METHYLPREDNISOLONE 40 MG INJ IV (06:00)
[2018-08-14 06:12] LABS: ADD MAN DIFF? NO
[2018-08-14 06:18] LABS: BASOPHILS % 0.1 % (0.0-2.0); HEMATOCRIT 41.4 % (37.0-47.0); HEMOGLOBIN 12.2 g/dl (12.0-16.0); LYMPHOCYTES # 0.9 10^3/ul (0.8-2.9); LYMPHOCYTES % 9.9 % (15.0-51.0); MEAN CORPUSCULAR HGB CONC 29.5 g/dl (32.0-37.0); MEAN CORPUSCULAR VOLUME 98.3 fl (82.0-101.0); MEAN PLATELET VOLUME 11.8 fl (7.4-10.4); MONOCYTE # 0.1 10^3/ul (0.3-0.9); MONOCYTES % 1.1 % (0.0-11.0); NEUTROPHIL # 8.4 10^3/ul (1.6-7.5); NEUTROPHILS % 88.6 % (39.0-77.0); PLATELET COUNT 238 10^3/UL (140-415); RED BLOOD COUNT 4.21 10^6/ul (4.20-5.40); RED CELL DISTRIBUTION WIDTH 14.3 % (11.5-14.5)
[2018-08-14 06:18] LABS: WHITE BLOOD COUNT 9.4 10^3/ul (4.8-10.8)
[2018-08-14 06:25] LABS: BLOOD UREA NITROGEN 12 mg/dl (7-20); CALCIUM 8.9 mg/dl (8.4-10.2); CHLORIDE 93 mmol/L (97-110); CREATININE 0.57 mg/dl (0.44-1.00); Estimated GFR > 60 mL/min (>60); GLUCOSE 396 mg/dl (70-220); POTASSIUM 4.6 mmol/L (3.5-5.1); SODIUM 138 mmol/L (135-144)
[2018-08-14 06:40] LABS: ANION GAP 9 (5-13)
[2018-08-14 06:48] LABS: CARBON DIOXIDE 36 mmol/L (21-31)
[2018-08-14] MEDS ORDERED: NPH, HUMAN INSULIN ISOPHANE 3ML VIAL SC (08:00)
[2018-08-14] MEDS: NPH, HUMAN INSULIN ISOPHANE 3ML VIAL SC ×3 (08:41→21:58)
[2018-08-14 09:30] LABS: AADO2 Arterial 36.4 mmHg (7.0-24.0); Allen Test ACCEPTAB; Arterial Base Excess 10.7 mmol/L (-3.0-3); Arterial Blood Gas Oxygen Sat 96.3 mmHG (95.0-98.0); Arterial COHb 0.7 % (0.0-3.0); Arterial Fraction of Oxyhgb 95.3 % (93.0-99.0); Arterial HCO3 39.6 mmol/L (22.0-26.0); Arterial MetHb 0.3 % (0.0-1.5); Arterial pCO2 74.5 mmhg (35-45); MODE NASAL CANNULA; Site Right Radial
[2018-08-14] MEDS: FUROSEMIDE 40 MG INJ IV ×2 (09:35→18:00)
[2018-08-14] MEDS: APIXABAN 5 MG TABLET PO ×2 (09:36→20:52)
[2018-08-14] MEDS: DOCUSATE SODIUM 100 MG CAP PO ×2 (09:36→20:52)
[2018-08-14] MEDS: LISINOPRIL 5 MG TAB PO (09:36)
[2018-08-14] MEDS: ASPIRIN 81 MG TAB PO (09:36)
[2018-08-14] MEDS: METHYLPREDNISOLONE 40 MG INJ IV ×3 (10:05→21:50)
[2018-08-14] MEDS: HYDROmorphONE 0.5 MG/0.5 ML SYG IV ×2 (13:53→20:55)
[2018-08-14] MEDS: ACETAZOLAMIDE 500 MG INJ IV (14:20)
[2018-08-14] MEDS: DIGOXIN 0.125 MG TAB PO (14:20)
[2018-08-14 15:07] LABS: TROPONIN-I < 0.012 ng/ml (0.000-0.120)
[2018-08-14] MEDS ORDERED: INSULIN GLARGINE [LANTus] (100 UNITS/ML) SYG SC (20:00)
[2018-08-14] MEDS: ATORVASTATIN 10 MG TAB PO (20:52)
[2018-08-14] MEDS: METOPROLOL (XL) 25 MG TAB PO (20:53)
[2018-08-14] MEDS ORDERED: ATORVASTATIN 10 MG TAB GTB (21:00)
[2018-08-15] MEDS: ALBUTEROL/IPRATROPIUM (NEB) 3 ML AMP HHN ×6 (00:01→20:36)
[2018-08-15] MEDS: ACCU-CHEK XX (02:53)
[2018-08-15] MEDS: INSULIN ASPART [NOVOLOG] 3 ML PEN SC ×5 (03:19→21:00)
[2018-08-15] MEDS: HYDROmorphONE 0.5 MG/0.5 ML SYG IV ×3 (05:09→16:52)
[2018-08-15] MEDS: METHYLPREDNISOLONE 40 MG INJ IV ×3 (05:10→20:45)
[2018-08-15] MEDS: PANTOPRAZOLE (EC) 40 MG TAB PO (05:11)
[2018-08-15] MEDS: LEVOFLOXACIN 750MG/D5W (PMX) 150 ML IVPB (05:12)
[2018-08-15] MEDS: NPH, HUMAN INSULIN ISOPHANE 3ML VIAL SC ×3 (05:18→21:01)
[2018-08-15 06:38] LABS: HDL CHOLESTEROL 51 mg/dl (34-88); LDL CHOLESTEROL,CALCULATED 95 mg/dl; TRIGLYCERIDES 58 mg/dl (0-149)
[2018-08-15 06:38] LABS: CHOLESTEROL 158 mg/dl (100-200)
[2018-08-15] MEDS: FUROSEMIDE 40 MG INJ IV ×2 (07:57→18:00)
[2018-08-15] MEDS: APIXABAN 5 MG TABLET PO ×2 (07:57→20:34)
[2018-08-15] MEDS: ASPIRIN 81 MG TAB PO (07:57)
[2018-08-15] MEDS: LISINOPRIL 5 MG TAB PO (07:57)
[2018-08-15] MEDS: DOCUSATE SODIUM 100 MG CAP PO ×2 (07:58→20:33)
[2018-08-15] MEDS: METOPROLOL (XL) 25 MG TAB PO ×2 (07:58→20:34)
[2018-08-15] MEDS ORDERED: VITAMIN A & D 5 GM OINT PACKET TOP (10:10)
[2018-08-15] MEDS: DIGOXIN 0.125 MG TAB PO (12:20)
[2018-08-15] MEDS: BISACODYL (EC) 5 MG TAB PO (13:14)
[2018-08-15] MEDS: GUAIFENESIN/DM 5ML CUP PO (15:25)
[2018-08-15] MEDS: ONDANSETRON 4 MG INJ IV (15:25)
[2018-08-15] MEDS: ATORVASTATIN 10 MG TAB PO (20:33)
[2018-08-15] MEDS: INSULIN GLARGINE [LANTus] (100 UNITS/ML) SYG SC (21:01)
[2018-08-16] MEDS: HYDROmorphONE 0.5 MG/0.5 ML SYG IV ×4 (00:06→18:42)
[2018-08-16] MEDS: ALBUTEROL/IPRATROPIUM (NEB) 3 ML AMP HHN ×6 (00:40→21:12)
[2018-08-16] MEDS: ACCU-CHEK XX (02:00)
[2018-08-16] MEDS: FUROSEMIDE 40 MG INJ IV ×2 (06:00→17:24)
[2018-08-16] MEDS: LEVOFLOXACIN 750MG/D5W (PMX) 150 ML IVPB (06:04)
[2018-08-16] MEDS: PANTOPRAZOLE (EC) 40 MG TAB PO (06:07)
[2018-08-16 06:53] LABS: ANION GAP 5 (5-13); BLOOD UREA NITROGEN 27 mg/dl (7-20); CALCIUM 9.4 mg/dl (8.4-10.2); CARBON DIOXIDE 33 mmol/L (21-31); CHLORIDE 100 mmol/L (97-110); CREATININE 0.86 mg/dl (0.44-1.00); Estimated GFR > 60 mL/min (>60); GLUCOSE 264 mg/dl (70-220); POTASSIUM 4.5 mmol/L (3.5-5.1); SODIUM 138 mmol/L (135-144)
[2018-08-16] MEDS: INSULIN ASPART [NOVOLOG] 3 ML PEN SC ×6 (07:42→23:21)
[2018-08-16] MEDS: METHYLPREDNISOLONE 40 MG INJ IV ×2 (08:34→21:06)
[2018-08-16] MEDS: DOCUSATE SODIUM 100 MG CAP PO ×2 (08:35→21:07)
[2018-08-16] MEDS: ASPIRIN 81 MG TAB PO (08:35)
[2018-08-16] MEDS: APIXABAN 5 MG TABLET PO ×2 (08:35→21:07)
[2018-08-16] MEDS: METOPROLOL (XL) 25 MG TAB PO ×2 (08:36→21:08)
[2018-08-16] MEDS: LISINOPRIL 5 MG TAB PO (08:36)
[2018-08-16] MEDS: NPH, HUMAN INSULIN ISOPHANE 3ML VIAL SC ×2 (08:41→21:06)
[2018-08-16] MEDS: DIGOXIN 0.125 MG TAB PO (13:55)
[2018-08-16] MEDS: INSULIN GLARGINE [LANTus] (100 UNITS/ML) SYG SC (21:06)
[2018-08-16] MEDS: ATORVASTATIN 10 MG TAB PO (21:07)
[2018-08-16] MEDS: ZOLPIDEM 5 MG TAB PO (21:07)
[2018-08-17] MEDS: ALBUTEROL/IPRATROPIUM (NEB) 3 ML AMP HHN ×6 (01:27→20:32)
[2018-08-17] MEDS ORDERED: ACCU-CHEK XX (02:00)
[2018-08-17] MEDS: ACCU-CHEK XX (02:00)
[2018-08-17] MEDS: HYDROmorphONE 0.5 MG/0.5 ML SYG IV ×4 (04:01→21:57)
[2018-08-17] MEDS: PANTOPRAZOLE (EC) 40 MG TAB PO (05:49)
[2018-08-17] MEDS: LEVOFLOXACIN 750MG/D5W (PMX) 150 ML IVPB (05:49)
[2018-08-17] MEDS: FUROSEMIDE 40 MG TAB PO ×2 (05:50→17:37)
[2018-08-17 06:55] LABS: ANION GAP 3 (5-13); BLOOD UREA NITROGEN 23 mg/dl (7-20); CALCIUM 8.8 mg/dl (8.4-10.2); CARBON DIOXIDE 38 mmol/L (21-31); CHLORIDE 97 mmol/L (97-110); CREATININE 0.63 mg/dl (0.44-1.00); Estimated GFR > 60 mL/min (>60); GLUCOSE 266 mg/dl (70-220); POTASSIUM 4.3 mmol/L (3.5-5.1); SODIUM 138 mmol/L (135-144)
[2018-08-17] MEDS: INSULIN ASPART [NOVOLOG] 3 ML PEN SC ×5 (08:02→22:04)
[2018-08-17] MEDS: NPH, HUMAN INSULIN ISOPHANE 3ML VIAL SC ×2 (08:02→21:26)
[2018-08-17] MEDS: DOCUSATE SODIUM 100 MG CAP PO ×2 (08:11→20:15)
[2018-08-17] MEDS: ASPIRIN 81 MG TAB PO (08:11)
[2018-08-17] MEDS: METOPROLOL (XL) 25 MG TAB PO ×2 (08:12→20:16)
[2018-08-17] MEDS: APIXABAN 5 MG TABLET PO ×2 (08:12→20:15)
[2018-08-17] MEDS: LISINOPRIL 5 MG TAB PO (08:13)
[2018-08-17] MEDS: METHYLPREDNISOLONE 40 MG INJ IV (08:13)
[2018-08-17] MEDS: DIGOXIN 0.125 MG TAB PO (14:23)
[2018-08-17] MEDS: GUAIFENESIN/DM 5ML CUP PO (16:11)
[2018-08-17] MEDS: ALPRAZOLAM 0.25 MG TAB PO (18:46)
[2018-08-17] MEDS: ATORVASTATIN 10 MG TAB PO (20:15)
[2018-08-17] MEDS: ZOLPIDEM 5 MG TAB PO (20:25)
[2018-08-17] MEDS: INSULIN GLARGINE [LANTus] (100 UNITS/ML) SYG SC (21:27)
[2018-08-18] MEDS: ALBUTEROL/IPRATROPIUM (NEB) 3 ML AMP HHN ×6 (00:52→21:08)
[2018-08-18] MEDS: ACCU-CHEK XX (02:00)
[2018-08-18] MEDS: HYDROmorphONE 0.5 MG/0.5 ML SYG IV ×4 (03:58→21:52)
[2018-08-18] MEDS: PANTOPRAZOLE (EC) 40 MG TAB PO (05:44)
[2018-08-18] MEDS: ALPRAZOLAM 0.25 MG TAB PO ×2 (05:44→20:49)
[2018-08-18] MEDS: LEVOFLOXACIN 750MG/D5W (PMX) 150 ML IVPB (05:44)
[2018-08-18 05:49] LABS: ADD MAN DIFF? NO
[2018-08-18] MEDS: FUROSEMIDE 40 MG TAB PO ×3 (05:53→17:10)
[2018-08-18 05:54] LABS: BASOPHILS % 0.3 % (0.0-2.0); EOSINOPHILS # 0.1 10^3/ul (0.0-0.5); EOSINOPHILS % 0.5 % (0.0-7.0); HEMATOCRIT 42.2 % (37.0-47.0); HEMOGLOBIN 12.5 g/dl (12.0-16.0); LYMPHOCYTES # 3.1 10^3/ul (0.8-2.9); LYMPHOCYTES % 22.7 % (15.0-51.0); MEAN CORPUSCULAR HEMOGLOBIN 29.7 pg (29.0-33.0); MEAN CORPUSCULAR HGB CONC 29.6 g/dl (32.0-37.0); MEAN CORPUSCULAR VOLUME 100.2 fl (82.0-101.0); MEAN PLATELET VOLUME 11.4 fl (7.4-10.4); MONOCYTE # 1.3 10^3/ul (0.3-0.9); MONOCYTES % 9.4 % (0.0-11.0); NEUTROPHILS % 66.4 % (39.0-77.0); PLATELET COUNT 228 10^3/UL (140-415); RED BLOOD COUNT 4.21 10^6/ul (4.20-5.40); RED CELL DISTRIBUTION WIDTH 14.5 % (11.5-14.5)
[2018-08-18 05:54] LABS: WHITE BLOOD COUNT 13.5 10^3/ul (4.8-10.8)
[2018-08-18 06:20] LABS: HEMOGLOBIN A1C 9.4 % (0-5.9)
[2018-08-18 06:27] LABS: BLOOD UREA NITROGEN 23 mg/dl (7-20); CALCIUM 8.9 mg/dl (8.4-10.2); CHLORIDE 98 mmol/L (97-110); CREATININE 0.71 mg/dl (0.44-1.00); Estimated GFR > 60 mL/min (>60); GLUCOSE 75 mg/dl (70-220); SODIUM 140 mmol/L (135-144)
[2018-08-18 06:35] LABS: ANION GAP 3 (5-13)
[2018-08-18 06:36] LABS: CARBON DIOXIDE 39 mmol/L (21-31)
[2018-08-18] MEDS: INSULIN ASPART [NOVOLOG] 3 ML PEN SC ×4 (07:23→21:05)
[2018-08-18] MEDS: ACETAMINOPHEN 325 MG TAB PO ×2 (07:34→18:44)
[2018-08-18] MEDS: NPH, HUMAN INSULIN ISOPHANE 3ML VIAL SC ×2 (07:52→21:06)
[2018-08-18] MEDS: predniSONE 20 MG TAB PO (08:08)
[2018-08-18] MEDS: METOPROLOL (XL) 25 MG TAB PO ×2 (08:08→20:50)
[2018-08-18] MEDS: APIXABAN 5 MG TABLET PO ×2 (08:08→20:49)
[2018-08-18] MEDS: LISINOPRIL 5 MG TAB PO (08:08)
[2018-08-18] MEDS: ASPIRIN 81 MG TAB PO (08:08)
[2018-08-18] MEDS: DOCUSATE SODIUM 100 MG CAP PO ×2 (08:08→20:49)
[2018-08-18] MEDS: DIGOXIN 0.125 MG TAB PO (13:05)
[2018-08-18] MEDS: GUAIFENESIN/DM 5ML CUP PO (14:50)
[2018-08-18] MEDS: ZOLPIDEM 5 MG TAB PO (20:49)
[2018-08-18] MEDS: ATORVASTATIN 10 MG TAB PO (20:49)
[2018-08-18] MEDS: INSULIN GLARGINE [LANTus] (100 UNITS/ML) SYG SC (21:06)
[2018-08-19] MEDS: ALBUTEROL/IPRATROPIUM (NEB) 3 ML AMP HHN ×3 (01:00→08:26)
[2018-08-19] MEDS: ACCU-CHEK XX (02:00)
[2018-08-19] MEDS: HYDROmorphONE 0.5 MG/0.5 ML SYG IV ×2 (03:58→10:09)
[2018-08-19] MEDS: FUROSEMIDE 40 MG TAB PO ×2 (05:39→05:41)
[2018-08-19] MEDS: PANTOPRAZOLE (EC) 40 MG TAB PO (05:39)
[2018-08-19] MEDS: LEVOFLOXACIN 750MG/D5W (PMX) 150 ML IVPB (05:39)
[2018-08-19] MEDS: INSULIN ASPART [NOVOLOG] 3 ML PEN SC ×2 (07:52→12:00)
[2018-08-19] MEDS: ASPIRIN 81 MG TAB PO (08:43)
[2018-08-19] MEDS: predniSONE 20 MG TAB PO (08:43)
[2018-08-19] MEDS: APIXABAN 5 MG TABLET PO (08:43)
[2018-08-19] MEDS: DOCUSATE SODIUM 100 MG CAP PO (08:43)
[2018-08-19] MEDS: METOPROLOL (XL) 25 MG TAB PO (08:44)
[2018-08-19] MEDS: BISACODYL (EC) 5 MG TAB PO (08:44)
[2018-08-19] MEDS: LISINOPRIL 5 MG TAB PO (08:44)
[2018-08-19] MEDS: NPH, HUMAN INSULIN ISOPHANE 3ML VIAL SC (08:52)
== END 2018-08-19 12:56 | disposition home or self-care (01) | DRG 190 ==
LOC: E/R 15:15 → 6WM 21:00
PROC: 5A09357 Assistance with Respiratory Ventilation, Less than 24 Consecutive Hours, Continuous Positive Airway Pressure (ICD-10-PCS; principal; 2018-08-13)
DX: J44.1 Chronic obstructive pulmonary disease with (acute) exacerbation (principal); J96.01 Acute respiratory failure with hypoxia; J96.02 Acute respiratory failure with hypercapnia; I50.23 Acute on chronic systolic (congestive) heart failure; Z68.42 Body mass index [BMI] 45.0-49.9, adult; E87.3 Alkalosis; I42.9 Cardiomyopathy, unspecified; I11.0 Hypertensive heart disease with heart failure; E78.5 Hyperlipidemia, unspecified; E66.01 Morbid (severe) obesity due to excess calories; F31.9 Bipolar disorder, unspecified; F41.9 Anxiety disorder, unspecified; E11.65 Type 2 diabetes mellitus with hyperglycemia; K43.9 Ventral hernia without obstruction or gangrene; K46.9 Unspecified abdominal hernia without obstruction or gangrene; K59.00 Constipation, unspecified; I48.0 Paroxysmal atrial fibrillation; Z87.891 Personal history of nicotine dependence; S09.93XA Unspecified injury of face, initial encounter; W18.30XA Fall on same level, unspecified, initial encounter; Y92.231 Patient bathroom in hospital as the place of occurrence of the external cause; S09.90XA Unspecified injury of head, initial encounter
CPT/HCPCS: 36415; 36600; 70450; 71045; 74018; 80048; 80061; 82803; 82962; 83036; 83605; 83880; 84484; 85025; 85610; 87070; 93005; 94640; 94644; 94660; 94664; 96374; 96375; 99291-25

== ENCOUNTER 2018-08-20 17:45 | Emergency (ER) | payer BC ==
[2018-08-20] MEDS: HYDROmorphONE 1 MG/ML SYG IV ×2 (19:24→22:01)
[2018-08-20] MEDS: ONDANSETRON 4 MG INJ IV ×2 (19:24→22:00)
[2018-08-20 20:12] LABS: ADD MAN DIFF? NO
[2018-08-20 20:13] LABS: WHITE BLOOD COUNT 14.4 10^3/ul (4.8-10.8)
[2018-08-20 20:13] LABS: BASOPHILS % 0.3 % (0.0-2.0); EOSINOPHILS # 0.1 10^3/ul (0.0-0.5); EOSINOPHILS % 0.4 % (0.0-7.0); HEMATOCRIT 46.6 % (37.0-47.0); HEMOGLOBIN 14.4 g/dl (12.0-16.0); LYMPHOCYTES # 3.6 10^3/ul (0.8-2.9); LYMPHOCYTES % 24.7 % (15.0-51.0); MEAN CORPUSCULAR HEMOGLOBIN 29.3 pg (29.0-33.0); MEAN CORPUSCULAR HGB CONC 30.9 g/dl (32.0-37.0); MEAN CORPUSCULAR VOLUME 94.7 fl (82.0-101.0); MEAN PLATELET VOLUME 11.1 fl (7.4-10.4); MONOCYTE # 1.1 10^3/ul (0.3-0.9); MONOCYTES % 7.7 % (0.0-11.0); NEUTROPHIL # 9.5 10^3/ul (1.6-7.5); NEUTROPHILS % 65.7 % (39.0-77.0); PLATELET COUNT 241 10^3/UL (140-415); RED BLOOD COUNT 4.92 10^6/ul (4.20-5.40); RED CELL DISTRIBUTION WIDTH 14.4 % (11.5-14.5)
[2018-08-20 20:31] LABS: ALANINE AMINOTRANSFERASE 22 IU/L (13-69); ALBUMIN 3.8 g/dl (3.3-4.9); ALBUMIN/GLOBULIN RATIO 1.08; ALKALINE PHOSPHATASE 83 IU/L (42-121); ASPARTATE AMINO TRANSFERASE 33 IU/L (15-46); BILIRUBIN,INDIRECT 0.2 mg/dl (0-1.1); BILIRUBIN,TOTAL 0.2 mg/dl (0.2-1.3); BLOOD UREA NITROGEN 18 mg/dl (7-20); CHLORIDE 95 mmol/L (97-110); CREATININE 0.53 mg/dl (0.44-1.00); Estimated GFR > 60 mL/min (>60); GLUCOSE 171 mg/dl (70-220); LIPASE 51 U/L (23-300); POTASSIUM 4.6 mmol/L (3.5-5.1); SODIUM 138 mmol/L (135-144); TOTAL PROTEIN 7.3 g/dl (6.1-8.1)
[2018-08-20 20:38] LABS: ANION GAP 3 (5-13)
[2018-08-20 20:42] LABS: CARBON DIOXIDE 40 mmol/L (21-31)
[2018-08-20 20:43] LABS: TROPONIN-I < 0.012 ng/ml (0.000-0.120)
[2018-08-20 22:30] LABS: B-TYPE NATRIURETIC PEPTIDE 2510 PG/ML (0-125)
== END 2018-08-21 02:05 | disposition home or self-care (01) ==
LOC: E/R 08-21 02:05
DX: R07.9 Chest pain, unspecified (principal); K46.9 Unspecified abdominal hernia without obstruction or gangrene; J44.9 Chronic obstructive pulmonary disease, unspecified; I10 Essential (primary) hypertension; Z79.01 Long term (current) use of anticoagulants; Z79.4 Long term (current) use of insulin; Z79.82 Long term (current) use of aspirin
CPT/HCPCS: 36415; 71045; 74176; 80053; 82962; 83690; 83880; 84484; 84703; 85025; 93005; 96374; 96375; 96376; 99285-25

== ENCOUNTER 2018-09-26 00:25 | Inpatient (IN) | payer BC ==
[2018-09-26] MEDS ORDERED: ONDANSETRON (ODT) 4 MG TAB ODT (03:00)
[2018-09-26] MEDS ORDERED: ALBUTEROL/IPRATROPIUM (NEB) 3 ML AMP NEB (03:00)
[2018-09-26] MEDS ORDERED: BISACODYL (EC) 5 MG TAB PO (03:00)
[2018-09-26] MEDS ORDERED: DOCUSATE SODIUM 100 MG CAP PO ×2 (03:00→09:00)
[2018-09-26] MEDS ORDERED: GLUCOSE GEL 15 GRAM TUBE BUCCAL (03:30)
[2018-09-26] MEDS ORDERED: GLUCAGON 1 MG INJ IM (03:30)
[2018-09-26] MEDS ORDERED: GLUCOSE GEL 15 GRAM TUBE PO ×2 (03:30)
[2018-09-26] MEDS ORDERED: DEXTROSE 50% 50 ML SYRINGE IV ×2 (03:30)
[2018-09-26] MEDS: PANTOPRAZOLE (EC) 40 MG TAB PO (05:12)
[2018-09-26] MEDS: FUROSEMIDE 40 MG TAB PO ×2 (05:13→17:33)
[2018-09-26] MEDS: IBUPROFEN 600 MG TAB PO ×3 (05:14→17:33)
[2018-09-26] MEDS ORDERED: INSULIN GLARGINE [LANTus] (100 UNITS/ML) SYG SC ×2 (08:00→21:00)
[2018-09-26] MEDS: LISINOPRIL 5 MG TAB PO (08:08)
[2018-09-26] MEDS: DOCUSATE SODIUM 100 MG CAP PO ×2 (08:08→20:55)
[2018-09-26] MEDS: APIXABAN 5 MG TABLET PO ×2 (08:08→20:52)
[2018-09-26] MEDS: ASPIRIN 81 MG TAB PO (08:08)
[2018-09-26] MEDS: METOPROLOL (XL) 25 MG TAB PO ×2 (08:09→20:50)
[2018-09-26] MEDS: metFORMIN 500 MG TAB PO ×2 (08:09→17:33)
[2018-09-26] MEDS: QUETIAPINE 100 MG TAB PO (08:09)
[2018-09-26] MEDS: predniSONE 20 MG TAB PO (08:09)
[2018-09-26] MEDS: INSULIN GLARGINE [LANTus] (100 UNITS/ML) SYG SC (08:21)
[2018-09-26] MEDS: INSULIN ASPART [NOVOLOG] 3 ML PEN SC ×8 (08:22→21:49)
[2018-09-26] MEDS ORDERED: ASPIRIN (EC) 81 MG TAB PO (09:00)
[2018-09-26 10:38] LABS: WHITE BLOOD COUNT 8.6 10^3/ul (4.8-10.8)
[2018-09-26 10:38] LABS: MEAN CORPUSCULAR VOLUME 96.6 fl (82.0-101.0); MEAN PLATELET VOLUME 11.7 fl (7.4-10.4); PLATELET COUNT 194 10^3/UL (140-415); RED BLOOD COUNT 4.14 10^6/ul (4.20-5.40); RED CELL DISTRIBUTION WIDTH 14.3 % (11.5-14.5)
[2018-09-26 10:40] LABS: ADD MAN DIFF? YES; POSITIVE DIFF @See below
[2018-09-26 10:56] LABS: BLOOD UREA NITROGEN 21 mg/dl (7-20); CALCIUM 8.5 mg/dl (8.4-10.2); CHLORIDE 87 mmol/L (97-110); CREATININE 0.55 mg/dl (0.44-1.00); Estimated GFR > 60 mL/min (>60); POTASSIUM 4.6 mmol/L (3.5-5.1); SODIUM 137 mmol/L (135-144)
[2018-09-26 11:06] LABS: ANION GAP 7 (5-13)
[2018-09-26 11:08] LABS: CARBON DIOXIDE 43 mmol/L (21-31); GLUCOSE 428 mg/dl (70-220)
[2018-09-26 11:32] LABS: AADO2 Arterial 28.3 mmHg (7.0-24.0); Allen Test ACCEPTAB; Arterial Base Excess 16.4 mmol/L (-3.0-3); Arterial Blood Gas Oxygen Sat 95.7 mmHG (95.0-98.0); Arterial COHb 0.8 % (0.0-3.0); Arterial Fraction of Oxyhgb 94.6 % (93.0-99.0); Arterial HCO3 44.3 mmol/L (22.0-26.0); Arterial MetHb 0.3 % (0.0-1.5); Arterial pCO2 68.6 mmhg (35-45); MODE NASAL CANNULA; Site Right Radial
[2018-09-26 11:50] LABS: ANISOCYTOSIS 1+ (0-0); BAND NEUTROPHILS #M 1.2 10^3/ul (0.0-0.6); BAND NEUTROPHILS % (M) 14 % (0-4); ERYTHROBLAST% (NRBC) (M) 1 % (0-0); GIANT THROMBO% (M) 3 % (0-0); LYMPHOCYTES #M 0.9 10^3/ul (0.8-2.9); LYMPHOCYTES % (M) 11 % (15-51); MONOCYTE #M 0.6 10^3/ul (0.3-0.9); MONOCYTES % (M) 8 % (0-11); PLATELET ESTIMATE NORMAL; POIKILOCYTOSIS 1+ (0-0); POLYCHROMASIA 1+ (0-0); REACTIVE LYMPHOCYTES #M 0.3 10^3/ul (0.0-0.0); REACTIVE LYMPHOCYTES% (M) 4 % (0-0); SEG NEUT #M 5.5 10^3/ul (1.6-7.5); SEGMENTED NEUTROPHILS (M) % 63 % (39-77); SMUDGE%M 15 % (0-0)
[2018-09-26] MEDS: CEFTRIAXONE 1 GM/50 ML (PMX) 50 ML IVPB (12:06)
[2018-09-26] MEDS ORDERED: ACETAZOLAMIDE 500 MG INJ IV (13:00)
[2018-09-26] MEDS ORDERED: DIGOXIN 0.125 MG TAB PO (13:00)
[2018-09-26] MEDS: ALBUTEROL/IPRATROPIUM (NEB) 3 ML AMP HHN ×2 (14:00→19:58)
[2018-09-26] MEDS: AZITHROMYCIN 500 MG in SOD CHLORIDE 0.9% 250 ML IVPB (14:02)
[2018-09-26] MEDS: DIGOXIN 0.125 MG TAB PO (14:03)
[2018-09-26] MEDS: ALTEPLASE (CATHFLO) 2 MG INJ CATHETER (17:38)
[2018-09-26] MEDS ORDERED: traMADol 50 MG TAB PO (19:00)
[2018-09-26] MEDS: HYDROCODONE/APAP (10/325) TAB PO (19:06)
[2018-09-26] MEDS: LORAZEPAM 0.5 MG TAB PO (20:50)
[2018-09-26] MEDS: ATORVASTATIN 10 MG TAB PO (20:52)
[2018-09-26] MEDS ORDERED: INSULIN GLARGINE [LANtus] 3 ML PEN SC (21:00)
[2018-09-26] MEDS ORDERED: ATORVASTATIN 10 MG TAB PO (21:00)
[2018-09-27] MEDS: ALBUTEROL/IPRATROPIUM (NEB) 3 ML AMP HHN ×6 (01:33→20:43)
[2018-09-27] MEDS: ACCUCHECK AT 2AM (Patients on SS coverage) XX (01:57)
[2018-09-27] MEDS ORDERED: ACCU-CHEK XX (02:00)
[2018-09-27] MEDS: GUAIFENESIN/DM 5ML CUP PO ×3 (04:14→20:11)
[2018-09-27] MEDS: BISACODYL (EC) 5 MG TAB PO (04:20)
[2018-09-27] MEDS: HYDROCODONE/APAP (10/325) TAB PO ×2 (04:20→20:18)
[2018-09-27] MEDS: IBUPROFEN 600 MG TAB PO ×4 (06:08→17:24)
[2018-09-27] MEDS: FUROSEMIDE 40 MG TAB PO ×2 (06:09→17:24)
[2018-09-27] MEDS: PANTOPRAZOLE (EC) 40 MG TAB PO (06:09)
[2018-09-27] MEDS: INSULIN ASPART [NOVOLOG] 3 ML PEN SC ×7 (07:40→20:17)
[2018-09-27] MEDS: metFORMIN 500 MG TAB PO ×2 (07:41→17:32)
[2018-09-27] MEDS: INSULIN GLARGINE [LANTus] (100 UNITS/ML) SYG SC (07:47)
[2018-09-27] MEDS: ASPIRIN 81 MG TAB PO (10:05)
[2018-09-27] MEDS: APIXABAN 5 MG TABLET PO ×2 (10:05→20:14)
[2018-09-27] MEDS: predniSONE 20 MG TAB PO (10:05)
[2018-09-27] MEDS: QUETIAPINE 100 MG TAB PO (10:05)
[2018-09-27] MEDS: DOCUSATE SODIUM 100 MG CAP PO ×2 (10:06→20:14)
[2018-09-27] MEDS: LISINOPRIL 5 MG TAB PO (10:06)
[2018-09-27] MEDS: METOPROLOL (XL) 25 MG TAB PO ×2 (10:06→20:13)
[2018-09-27] MEDS: HYDROmorphONE 0.5 MG/0.5 ML SYG IV (10:12)
[2018-09-27] MEDS ORDERED: POLYETHYLENE GLYCOL 17 GM PACKET PO (11:30)
[2018-09-27] MEDS: CEFTRIAXONE 1 GM/50 ML (PMX) 50 ML IVPB (13:12)
[2018-09-27] MEDS: DIGOXIN 0.125 MG TAB PO (13:12)
[2018-09-27] MEDS: LACTULOSE 30ML CUP PO ×2 (13:12→22:00)
[2018-09-27] MEDS ORDERED: ALTEPLASE (CATHFLO) 2 MG INJ CATHETER (19:30)
[2018-09-27] MEDS: ALTEPLASE (CATHFLO) 2 MG INJ CATHETER (19:30)
[2018-09-27] MEDS: LORAZEPAM 0.5 MG TAB PO (20:13)
[2018-09-27] MEDS: ATORVASTATIN 10 MG TAB PO (20:14)
[2018-09-28] MEDS: ALBUTEROL/IPRATROPIUM (NEB) 3 ML AMP HHN ×6 (00:26→20:50)
[2018-09-28] MEDS: ACCUCHECK AT 2AM (Patients on SS coverage) XX (02:02)
[2018-09-28] MEDS: PANTOPRAZOLE (EC) 40 MG TAB PO (05:12)
[2018-09-28] MEDS: IBUPROFEN 600 MG TAB PO ×4 (05:13→17:20)
[2018-09-28] MEDS: FUROSEMIDE 40 MG TAB PO ×3 (05:13→17:32)
[2018-09-28] MEDS: LACTULOSE 30ML CUP PO ×2 (05:15→13:19)
[2018-09-28 06:20] LABS: ADD MAN DIFF? NO
[2018-09-28 06:23] LABS: BASOPHILS % 0.2 % (0.0-2.0); EOSINOPHILS % 0.2 % (0.0-7.0); HEMATOCRIT 41.4 % (37.0-47.0); HEMOGLOBIN 12.3 g/dl (12.0-16.0); LYMPHOCYTES # 2.7 10^3/ul (0.8-2.9); LYMPHOCYTES % 27.5 % (15.0-51.0); MEAN CORPUSCULAR HGB CONC 29.7 g/dl (32.0-37.0); MEAN CORPUSCULAR VOLUME 97.6 fl (82.0-101.0); MEAN PLATELET VOLUME 11.5 fl (7.4-10.4); MONOCYTE # 0.5 10^3/ul (0.3-0.9); MONOCYTES % 5.6 % (0.0-11.0); NEUTROPHIL # 6.3 10^3/ul (1.6-7.5); NEUTROPHILS % 65.7 % (39.0-77.0); PLATELET COUNT 223 10^3/UL (140-415); RED BLOOD COUNT 4.24 10^6/ul (4.20-5.40); RED CELL DISTRIBUTION WIDTH 14.1 % (11.5-14.5)
[2018-09-28 06:23] LABS: WHITE BLOOD COUNT 9.7 10^3/ul (4.8-10.8)
[2018-09-28 06:57] LABS: BLOOD UREA NITROGEN 24 mg/dl (7-20); CALCIUM 8.5 mg/dl (8.4-10.2); CHLORIDE 91 mmol/L (97-110); Estimated GFR > 60 mL/min (>60); GLUCOSE 92 mg/dl (70-220); PHOSPHORUS 4.2 mg/dl (2.5-4.9); POTASSIUM 4.4 mmol/L (3.5-5.1); SODIUM 138 mmol/L (135-144)
[2018-09-28 07:20] LABS: ANION GAP 5 (5-13)
[2018-09-28 07:23] LABS: CARBON DIOXIDE 42 mmol/L (21-31)
[2018-09-28] MEDS: INSULIN ASPART [NOVOLOG] 3 ML PEN SC ×7 (07:46→20:23)
[2018-09-28] MEDS: metFORMIN 500 MG TAB PO ×2 (07:46→17:20)
[2018-09-28] MEDS: INSULIN GLARGINE [LANTus] (100 UNITS/ML) SYG SC (07:57)
[2018-09-28] MEDS: ASPIRIN 81 MG TAB PO (08:54)
[2018-09-28] MEDS: DOCUSATE SODIUM 100 MG CAP PO ×2 (08:54→20:24)
[2018-09-28] MEDS: METOPROLOL (XL) 25 MG TAB PO ×2 (08:55→20:12)
[2018-09-28] MEDS: QUETIAPINE 100 MG TAB PO (08:55)
[2018-09-28] MEDS: APIXABAN 5 MG TABLET PO ×2 (08:55→20:11)
[2018-09-28] MEDS: predniSONE 20 MG TAB PO (08:55)
[2018-09-28] MEDS: LISINOPRIL 5 MG TAB PO (08:55)
[2018-09-28] MEDS ORDERED: ERGOCALCIFEROL 50,000 UNIT CAP PO (09:00)
[2018-09-28] MEDS: CEFTRIAXONE 1 GM/50 ML (PMX) 50 ML IVPB (12:08)
[2018-09-28] MEDS: DIGOXIN 0.125 MG TAB PO (12:08)
[2018-09-28] MEDS: HYDROmorphONE 0.5 MG/0.5 ML SYG IV (13:32)
[2018-09-28] MEDS: GUAIFENESIN/DM 5ML CUP PO (17:20)
[2018-09-28] MEDS: HYDROCODONE/APAP (10/325) TAB PO (19:41)
[2018-09-28] MEDS: ATORVASTATIN 10 MG TAB PO (20:12)
[2018-09-28] MEDS: LORAZEPAM 0.5 MG TAB PO (20:12)
[2018-09-29] MEDS: IBUPROFEN 600 MG TAB PO ×3 (00:18→11:34)
[2018-09-29] MEDS: ALBUTEROL/IPRATROPIUM (NEB) 3 ML AMP HHN ×5 (02:08→17:00)
[2018-09-29] MEDS: ACCUCHECK AT 2AM (Patients on SS coverage) XX (02:13)
[2018-09-29] MEDS: FUROSEMIDE 40 MG TAB PO (05:32)
[2018-09-29] MEDS: PANTOPRAZOLE (EC) 40 MG TAB PO (05:37)
[2018-09-29 06:08] LABS: ADD MAN DIFF? NO
[2018-09-29 06:15] LABS: BASOPHILS % 0.1 % (0.0-2.0); EOSINOPHILS # 0.1 10^3/ul (0.0-0.5); EOSINOPHILS % 0.5 % (0.0-7.0); HEMATOCRIT 39.6 % (37.0-47.0); HEMOGLOBIN 11.9 g/dl (12.0-16.0); LYMPHOCYTES # 2.7 10^3/ul (0.8-2.9); LYMPHOCYTES % 26.6 % (15.0-51.0); MEAN CORPUSCULAR HEMOGLOBIN 28.7 pg (29.0-33.0); MEAN CORPUSCULAR HGB CONC 30.1 g/dl (32.0-37.0); MEAN CORPUSCULAR VOLUME 95.7 fl (82.0-101.0); MEAN PLATELET VOLUME 11.2 fl (7.4-10.4); MONOCYTE # 0.7 10^3/ul (0.3-0.9); MONOCYTES % 6.6 % (0.0-11.0); NEUTROPHIL # 6.7 10^3/ul (1.6-7.5); NEUTROPHILS % 65.5 % (39.0-77.0); PLATELET COUNT 255 10^3/UL (140-415); RED BLOOD COUNT 4.14 10^6/ul (4.20-5.40); RED CELL DISTRIBUTION WIDTH 14.2 % (11.5-14.5)
[2018-09-29 06:15] LABS: WHITE BLOOD COUNT 10.3 10^3/ul (4.8-10.8)
[2018-09-29 06:47] LABS: BLOOD UREA NITROGEN 21 mg/dl (7-20); CALCIUM 8.9 mg/dl (8.4-10.2); CHLORIDE 94 mmol/L (97-110); Estimated GFR > 60 mL/min (>60); GLUCOSE 103 mg/dl (70-220); POTASSIUM 4.1 mmol/L (3.5-5.1); SODIUM 139 mmol/L (135-144)
[2018-09-29 07:30] LABS: ANION GAP 5 (5-13)
[2018-09-29 07:41] LABS: CARBON DIOXIDE 40 mmol/L (21-31)
[2018-09-29] MEDS: INSULIN ASPART [NOVOLOG] 3 ML PEN SC ×4 (08:00→12:59)
[2018-09-29] MEDS: APIXABAN 5 MG TABLET PO (08:05)
[2018-09-29] MEDS: ERGOCALCIFEROL 50,000 UNIT CAP PO (08:05)
[2018-09-29] MEDS: QUETIAPINE 100 MG TAB PO (08:05)
[2018-09-29] MEDS: DOCUSATE SODIUM 100 MG CAP PO (08:05)
[2018-09-29] MEDS: ASPIRIN 81 MG TAB PO (08:05)
[2018-09-29] MEDS: predniSONE 20 MG TAB PO (08:05)
[2018-09-29] MEDS: METOPROLOL (XL) 25 MG TAB PO (08:08)
[2018-09-29] MEDS: LISINOPRIL 5 MG TAB PO (08:08)
[2018-09-29] MEDS: metFORMIN 500 MG TAB PO (08:13)
[2018-09-29] MEDS: INSULIN GLARGINE [LANTus] (100 UNITS/ML) SYG SC (08:18)
[2018-09-29] MEDS: HYDROCODONE/APAP (10/325) TAB PO (11:34)
[2018-09-29] MEDS: CEFTRIAXONE 1 GM/50 ML (PMX) 50 ML IVPB (11:34)
[2018-09-29] MEDS: DIGOXIN 0.125 MG TAB PO (12:53)
[2018-09-29] MEDS: ACETAZOLAMIDE 250 MG TAB PO (16:30)
== END 2018-09-29 18:15 | disposition home or self-care (01) | DRG 190 ==
LOC: 6WM 00:25
PROVIDERS: Internal Medicine Nephrology
DX: J44.0 Chronic obstructive pulmonary disease with (acute) lower respiratory infection (principal); J18.9 Pneumonia, unspecified organism; Z68.43 Body mass index [BMI] 50.0-59.9, adult; J96.12 Chronic respiratory failure with hypercapnia; I50.20 Unspecified systolic (congestive) heart failure; J44.1 Chronic obstructive pulmonary disease with (acute) exacerbation; E11.65 Type 2 diabetes mellitus with hyperglycemia; E66.01 Morbid (severe) obesity due to excess calories; I11.0 Hypertensive heart disease with heart failure; E78.5 Hyperlipidemia, unspecified; I48.2 Chronic atrial fibrillation; K43.9 Ventral hernia without obstruction or gangrene
CPT/HCPCS: 36600; 71045; 80048; 82652; 82803; 82962; 84100; 85025; 87070; 94640; 94664

== ENCOUNTER 2018-12-01 03:23 | Inpatient (IN) | payer BC ==
[2018-12-01 03:32] LABS: ADD MAN DIFF? NO
[2018-12-01 03:35] LABS: MODE NASAL CANNULA; MetHgb Venous 0.6 %; Sample Type Blood venous; Site VENOUS LINE; Venous COHb 0 %; Venous Fraction OxyHgb 72.5 %; Venous Oxygen Sat 72.9 mmHG (55.0-75.0); Venous Total Hemglobin 8.4 g/dl
[2018-12-01] MEDS: ALBUTEROL 0.083% (NEB) 2.5 MG/3 ML AMP INH (03:37)
[2018-12-01] MEDS: IPRATROPIUM (NEB) 0.5 MG/2.5 ML AMP INH (03:37)
[2018-12-01 03:53] LABS: INR 1.04; PROTIME 13.7 Sec (11.9-14.9); PT RATIO 1.1
[2018-12-01] MEDS: ACETAMINOPHEN 500 MG TAB PO (03:53)
[2018-12-01] MEDS: ONDANSETRON 4 MG INJ IV (03:54)
[2018-12-01 04:05] LABS: ALANINE AMINOTRANSFERASE 12 IU/L (13-69); ALBUMIN 3.4 g/dl (3.3-4.9); ALBUMIN/GLOBULIN RATIO 0.87; ALKALINE PHOSPHATASE 78 IU/L (42-121); ANION GAP 4 (5-13); ASPARTATE AMINO TRANSFERASE 20 IU/L (15-46); BILIRUBIN,INDIRECT 0.4 mg/dl (0-1.1); BILIRUBIN,TOTAL 0.4 mg/dl (0.2-1.3); BLOOD UREA NITROGEN 18 mg/dl (7-20); CALCIUM 8.6 mg/dl (8.4-10.2); CARBON DIOXIDE 37 mmol/L (21-31); CHLORIDE 101 mmol/L (97-110); CREATININE 0.93 mg/dl (0.44-1.00); Estimated GFR > 60 mL/min (>60); GLUCOSE 197 mg/dl (70-220); POTASSIUM 4.6 mmol/L (3.5-5.1); SODIUM 142 mmol/L (135-144); TOTAL PROTEIN 7.3 g/dl (6.1-8.1)
[2018-12-01 04:06] LABS: WHITE BLOOD COUNT 9.3 10^3/ul (4.8-10.8)
[2018-12-01 04:06] LABS: BASOPHILS % 0.4 % (0.0-2.0); EOSINOPHILS # 0.1 10^3/ul (0.0-0.5); EOSINOPHILS % 1.2 % (0.0-7.0); HEMATOCRIT 37.2 % (37.0-47.0); HEMOGLOBIN 10.8 g/dl (12.0-16.0); LYMPHOCYTES # 2.3 10^3/ul (0.8-2.9); LYMPHOCYTES % 24.7 % (15.0-51.0); MEAN CORPUSCULAR HEMOGLOBIN 27.2 pg (29.0-33.0); MEAN CORPUSCULAR VOLUME 93.7 fl (82.0-101.0); MEAN PLATELET VOLUME 11.5 fl (7.4-10.4); MONOCYTE # 0.9 10^3/ul (0.3-0.9); MONOCYTES % 9.4 % (0.0-11.0); NEUTROPHIL # 5.9 10^3/ul (1.6-7.5); PLATELET COUNT 240 10^3/UL (140-415); RED BLOOD COUNT 3.97 10^6/ul (4.20-5.40); RED CELL DISTRIBUTION WIDTH 15.6 % (11.5-14.5)
[2018-12-01 04:18] LABS: TROPONIN-I < 0.012 ng/ml (0.000-0.120)
[2018-12-01] MEDS: morphine 4 MG/ML VIAL IV (04:27)
[2018-12-01] MEDS: METHYLPREDNISOLONE 125 MG INJ IV (04:33)
[2018-12-01 05:12] LABS: B-TYPE NATRIURETIC PEPTIDE 1400 PG/ML (0-125)
[2018-12-01] MEDS ORDERED: IBUPROFEN 600 MG TAB PO ×2 (08:30→09:30)
[2018-12-01] MEDS ORDERED: GLUCOSE GEL 15 GRAM TUBE PO ×2 (08:30)
[2018-12-01] MEDS ORDERED: BISACODYL (EC) 5 MG TAB PO (08:30)
[2018-12-01] MEDS ORDERED: GUAIFENESIN/DM 5ML CUP PO (08:30)
[2018-12-01] MEDS ORDERED: DEXTROSE 50% 50 ML SYRINGE IV ×2 (08:30)
[2018-12-01] MEDS ORDERED: GLUCOSE GEL 15 GRAM TUBE BUCCAL (08:30)
[2018-12-01] MEDS ORDERED: GLUCAGON 1 MG INJ IM (08:30)
[2018-12-01] MEDS ORDERED: QUETIAPINE 100 MG TAB PO (09:00)
[2018-12-01] MEDS ORDERED: ALBUTEROL/IPRATROPIUM (NEB) 3 ML AMP INH (09:00)
[2018-12-01] MEDS ORDERED: LORAZEPAM 0.5 MG TAB PO (10:00)
[2018-12-01] MEDS: DOCUSATE SODIUM 100 MG CAP PO ×2 (10:04→22:00)
[2018-12-01] MEDS: metFORMIN 500 MG TAB PO ×2 (10:05→18:12)
[2018-12-01] MEDS: PANTOPRAZOLE (EC) 40 MG TAB PO (10:06)
[2018-12-01] MEDS: ASPIRIN 81 MG TAB PO (10:06)
[2018-12-01] MEDS: INSULIN ASPART [NOVOLOG] 3 ML PEN SC ×4 (10:25→22:46)
[2018-12-01] MEDS: FUROSEMIDE 40 MG INJ IV (11:06)
[2018-12-01] MEDS: ACCU-CHEK XX ×3 (11:30→21:00)
[2018-12-01] MEDS: LORAZEPAM 0.5 MG TAB PO (14:03)
[2018-12-01] MEDS: APIXABAN 5 MG TABLET PO ×2 (14:04→22:00)
[2018-12-01] MEDS: DIGOXIN 0.125 MG TAB PO (14:04)
[2018-12-01] MEDS: KETOROLAC 30 MG INJ IV (14:04)
[2018-12-01] MEDS: ALBUTEROL/IPRATROPIUM (NEB) 3 ML AMP INH (15:33)
[2018-12-01] MEDS: DICLOFENAC SODIUM 1% GEL 100 GM TUBE TP ×3 (15:49→22:01)
[2018-12-01 15:57] LABS: AMPHETAMINE/METHAMPHETAMINE Negative (NEGATIVE); BARBITURATES Negative (NEGATIVE); BENZODIAZEPINES Negative (NEGATIVE); CANNABINOIDS Positive (NEGATIVE); COCAINE Positive (NEGATIVE); OPIATES Positive (NEGATIVE)
[2018-12-01] MEDS: LISINOPRIL 5 MG TAB PO (17:18)
[2018-12-01] MEDS: QUETIAPINE 100 MG TAB PO (22:00)
[2018-12-01] MEDS: ATORVASTATIN 10 MG TAB PO (22:00)
[2018-12-01] MEDS: METOPROLOL (XL) 25 MG TAB PO (22:01)
[2018-12-01] MEDS: INSULIN GLARGINE [LANTus] (100 UNITS/ML) SYG SC (22:45)
[2018-12-02] MEDS: ACCU-CHEK XX ×5 (02:00→21:15)
[2018-12-02 05:46] LABS: ADD MAN DIFF? NO
[2018-12-02] MEDS: PANTOPRAZOLE (EC) 40 MG TAB PO (05:56)
[2018-12-02 06:07] LABS: WHITE BLOOD COUNT 14.8 10^3/ul (4.8-10.8)
[2018-12-02 06:07] LABS: BASOPHILS % 0.1 % (0.0-2.0); EOSINOPHILS % 0.3 % (0.0-7.0); HEMATOCRIT 35.2 % (37.0-47.0); HEMOGLOBIN 10.4 g/dl (12.0-16.0); LYMPHOCYTES # 1.7 10^3/ul (0.8-2.9); LYMPHOCYTES % 11.3 % (15.0-51.0); MEAN CORPUSCULAR HEMOGLOBIN 27.3 pg (29.0-33.0); MEAN CORPUSCULAR HGB CONC 29.5 g/dl (32.0-37.0); MEAN CORPUSCULAR VOLUME 92.4 fl (82.0-101.0); MEAN PLATELET VOLUME 11.6 fl (7.4-10.4); MONOCYTES % 6.6 % (0.0-11.0); NEUTROPHILS % 81.3 % (39.0-77.0); PLATELET COUNT 232 10^3/UL (140-415); RED BLOOD COUNT 3.81 10^6/ul (4.20-5.40); RED CELL DISTRIBUTION WIDTH 15.5 % (11.5-14.5)
[2018-12-02 06:32] LABS: HEMOGLOBIN A1C 10.3 % (0-5.9)
[2018-12-02 06:42] LABS: ANION GAP 3 (5-13); BLOOD UREA NITROGEN 21 mg/dl (7-20); CALCIUM 8.4 mg/dl (8.4-10.2); CARBON DIOXIDE 39 mmol/L (21-31); CHLORIDE 96 mmol/L (97-110); CREATININE 0.67 mg/dl (0.44-1.00); Estimated GFR > 60 mL/min (>60); GLUCOSE 206 mg/dl (70-220); POTASSIUM 4.4 mmol/L (3.5-5.1); SODIUM 138 mmol/L (135-144)
[2018-12-02] MEDS: DOCUSATE SODIUM 100 MG CAP PO ×2 (09:00→20:25)
[2018-12-02] MEDS: INSULIN ASPART [NOVOLOG] 3 ML PEN SC ×5 (09:11→21:00)
[2018-12-02] MEDS: APIXABAN 5 MG TABLET PO ×2 (09:12→20:25)
[2018-12-02] MEDS: ASPIRIN 81 MG TAB PO (09:12)
[2018-12-02] MEDS: metFORMIN 500 MG TAB PO (09:12)
[2018-12-02] MEDS: METOPROLOL (XL) 25 MG TAB PO ×2 (09:12→20:25)
[2018-12-02] MEDS: FUROSEMIDE 40 MG TAB PO ×2 (09:13→20:25)
[2018-12-02] MEDS: LISINOPRIL 5 MG TAB PO (09:13)
[2018-12-02] MEDS: DICLOFENAC SODIUM 1% GEL 100 GM TUBE TP ×4 (09:15→20:26)
[2018-12-02] MEDS: DIGOXIN 0.125 MG TAB PO (12:21)
[2018-12-02] MEDS: KETOROLAC 15 MG INJ IV (13:51)
[2018-12-02] MEDS: LORAZEPAM 0.5 MG TAB PO (17:16)
[2018-12-02] MEDS: traMADol 50 MG TAB PO (18:00)
[2018-12-02] MEDS: ALBUTEROL/IPRATROPIUM (NEB) 3 ML AMP INH (18:20)
[2018-12-02] MEDS: ATORVASTATIN 10 MG TAB PO (20:25)
[2018-12-02] MEDS: QUETIAPINE 100 MG TAB PO (20:26)
[2018-12-02] MEDS: INSULIN GLARGINE [LANTus] (100 UNITS/ML) SYG SC (20:38)
[2018-12-02] MEDS: ONDANSETRON (ODT) 4 MG TAB ODT (23:25)
[2018-12-02] MEDS: ONDANSETRON 4 MG INJ IV (23:35)
[2018-12-03] MEDS: ACCU-CHEK XX ×5 (01:16→21:03)
[2018-12-03] MEDS ORDERED: ACCU-CHEK XX (02:00)
[2018-12-03] MEDS: KETOROLAC 15 MG INJ IV ×2 (02:58→11:34)
[2018-12-03] MEDS ORDERED: METOCLOPRAMIDE 10 MG INJ IV (04:00)
[2018-12-03] MEDS: SOD CHLORIDE 0.45% 1,000 ML IV (04:10)
[2018-12-03 05:56] LABS: ADD MAN DIFF? NO
[2018-12-03] MEDS: PANTOPRAZOLE (EC) 40 MG TAB PO (06:00)
[2018-12-03] MEDS: METOCLOPRAMIDE 10 MG INJ IV ×3 (06:05→23:09)
[2018-12-03 06:07] LABS: WHITE BLOOD COUNT 9.7 10^3/ul (4.8-10.8)
[2018-12-03 06:07] LABS: BASOPHIL # 0.1 10^3/ul (0.0-0.1); BASOPHILS % 0.5 % (0.0-2.0); EOSINOPHILS # 0.1 10^3/ul (0.0-0.5); EOSINOPHILS % 0.6 % (0.0-7.0); HEMATOCRIT 38.3 % (37.0-47.0); HEMOGLOBIN 11.3 g/dl (12.0-16.0); LYMPHOCYTES # 1.6 10^3/ul (0.8-2.9); LYMPHOCYTES % 16.1 % (15.0-51.0); MEAN CORPUSCULAR HEMOGLOBIN 27.2 pg (29.0-33.0); MEAN CORPUSCULAR HGB CONC 29.5 g/dl (32.0-37.0); MEAN CORPUSCULAR VOLUME 92.3 fl (82.0-101.0); MEAN PLATELET VOLUME 11.5 fl (7.4-10.4); MONOCYTE # 0.7 10^3/ul (0.3-0.9); MONOCYTES % 7.2 % (0.0-11.0); NEUTROPHIL # 7.3 10^3/ul (1.6-7.5); NEUTROPHILS % 75.2 % (39.0-77.0); PLATELET COUNT 253 10^3/UL (140-415); RED BLOOD COUNT 4.15 10^6/ul (4.20-5.40); RED CELL DISTRIBUTION WIDTH 15.9 % (11.5-14.5)
[2018-12-03 06:39] LABS: PHOSPHORUS 4.2 mg/dl (2.5-4.9)
[2018-12-03 06:39] LABS: MAGNESIUM 1.7 mg/dl (1.7-2.5)
[2018-12-03 06:42] LABS: BLOOD UREA NITROGEN 28 mg/dl (7-20); CALCIUM 8.3 mg/dl (8.4-10.2); CHLORIDE 95 mmol/L (97-110); CREATININE 0.81 mg/dl (0.44-1.00); Estimated GFR > 60 mL/min (>60); GLUCOSE 181 mg/dl (70-220); POTASSIUM 5.1 mmol/L (3.5-5.1); SODIUM 138 mmol/L (135-144)
[2018-12-03 06:59] LABS: ANION GAP 6 (5-13)
[2018-12-03 07:05] LABS: CARBON DIOXIDE 37 mmol/L (21-31)
[2018-12-03] MEDS: INSULIN ASPART [NOVOLOG] 3 ML PEN SC ×7 (07:52→20:54)
[2018-12-03] MEDS: ONDANSETRON 4 MG INJ IV ×3 (07:53→20:26)
[2018-12-03] MEDS: ASPIRIN 81 MG TAB PO (08:11)
[2018-12-03] MEDS: DOCUSATE SODIUM 100 MG CAP PO ×2 (08:11→20:26)
[2018-12-03] MEDS: METOPROLOL (XL) 25 MG TAB PO ×2 (08:12→20:26)
[2018-12-03] MEDS: LISINOPRIL 5 MG TAB PO (08:12)
[2018-12-03] MEDS: FUROSEMIDE 40 MG TAB PO (08:16)
[2018-12-03] MEDS: DICLOFENAC SODIUM 1% GEL 100 GM TUBE TP ×5 (08:16→21:40)
[2018-12-03] MEDS: APIXABAN 5 MG TABLET PO ×2 (08:16→20:26)
[2018-12-03] MEDS: DIGOXIN 0.125 MG TAB PO (13:24)
[2018-12-03 13:28] LABS: LIPASE 85 U/L (23-300)
[2018-12-03] MEDS: morphine 2 MG INJ IV (13:28)
[2018-12-03] MEDS: SUCRALFATE (100 MG/ML) 10ML CUP PO ×2 (16:54→20:25)
[2018-12-03] MEDS: FUROSEMIDE 40 MG INJ IV (17:39)
[2018-12-03] MEDS: LORAZEPAM 0.5 MG TAB PO (20:26)
[2018-12-03] MEDS: QUETIAPINE 100 MG TAB PO (20:26)
[2018-12-03] MEDS: ATORVASTATIN 10 MG TAB PO (20:26)
[2018-12-03] MEDS: INSULIN GLARGINE [LANTus] (100 UNITS/ML) SYG SC (20:54)
[2018-12-04] MEDS: traMADol 50 MG TAB PO (01:39)
[2018-12-04] MEDS: ACCU-CHEK XX ×4 (02:07→17:08)
[2018-12-04 05:25] LABS: ADD MAN DIFF? NO
[2018-12-04] MEDS: FUROSEMIDE 40 MG INJ IV (05:27)
[2018-12-04] MEDS: METOCLOPRAMIDE 10 MG INJ IV ×2 (05:27→11:14)
[2018-12-04] MEDS: PANTOPRAZOLE 40 MG INJ IV (05:27)
[2018-12-04 05:34] LABS: BASOPHILS % 0.3 % (0.0-2.0); EOSINOPHILS # 0.1 10^3/ul (0.0-0.5); EOSINOPHILS % 0.8 % (0.0-7.0); HEMATOCRIT 35.8 % (37.0-47.0); HEMOGLOBIN 10.6 g/dl (12.0-16.0); LYMPHOCYTES # 1.4 10^3/ul (0.8-2.9); MEAN CORPUSCULAR HEMOGLOBIN 27.5 pg (29.0-33.0); MEAN CORPUSCULAR HGB CONC 29.6 g/dl (32.0-37.0); MEAN CORPUSCULAR VOLUME 92.7 fl (82.0-101.0); MEAN PLATELET VOLUME 11.4 fl (7.4-10.4); MONOCYTE # 1.4 10^3/ul (0.3-0.9); MONOCYTES % 11.8 % (0.0-11.0); NEUTROPHIL # 8.6 10^3/ul (1.6-7.5); NEUTROPHILS % 74.8 % (39.0-77.0); PLATELET COUNT 236 10^3/UL (140-415); RED BLOOD COUNT 3.86 10^6/ul (4.20-5.40); RED CELL DISTRIBUTION WIDTH 15.6 % (11.5-14.5)
[2018-12-04 05:34] LABS: WHITE BLOOD COUNT 11.5 10^3/ul (4.8-10.8)
[2018-12-04 05:43] LABS: ANION GAP 2 (5-13); BLOOD UREA NITROGEN 23 mg/dl (7-20); CALCIUM 8.3 mg/dl (8.4-10.2); CARBON DIOXIDE 40 mmol/L (21-31); CHLORIDE 97 mmol/L (97-110); CREATININE 0.71 mg/dl (0.44-1.00); Estimated GFR > 60 mL/min (>60); GLUCOSE 69 mg/dl (70-220); SODIUM 139 mmol/L (135-144)
[2018-12-04 06:25] LABS: MAGNESIUM 1.8 mg/dl (1.7-2.5)
[2018-12-04 06:25] LABS: PHOSPHORUS 4.1 mg/dl (2.5-4.9)
[2018-12-04] MEDS: INSULIN ASPART [NOVOLOG] 3 ML PEN SC ×4 (07:42→11:13)
[2018-12-04] MEDS: METOPROLOL (XL) 25 MG TAB PO (08:04)
[2018-12-04] MEDS: LISINOPRIL 5 MG TAB PO (08:05)
[2018-12-04] MEDS: ASPIRIN 81 MG TAB PO (08:20)
[2018-12-04] MEDS: SUCRALFATE (100 MG/ML) 10ML CUP PO ×3 (08:20→16:55)
[2018-12-04] MEDS: APIXABAN 5 MG TABLET PO (08:20)
[2018-12-04] MEDS: DOCUSATE SODIUM 100 MG CAP PO (08:20)
[2018-12-04] MEDS: DICLOFENAC SODIUM 1% GEL 100 GM TUBE TP ×3 (08:21→16:55)
[2018-12-04] MEDS: DIGOXIN 0.125 MG TAB PO (12:21)
== END 2018-12-04 17:10 | disposition home health service (06) | DRG 313 ==
LOC: E/R 03:23 → 6WM 04:29
DX: R07.9 Chest pain, unspecified (principal); I50.23 Acute on chronic systolic (congestive) heart failure; Z68.43 Body mass index [BMI] 50.0-59.9, adult; J96.12 Chronic respiratory failure with hypercapnia; D68.69 Other thrombophilia; F14.229 Cocaine dependence with intoxication, unspecified; I42.9 Cardiomyopathy, unspecified; I11.0 Hypertensive heart disease with heart failure; J44.9 Chronic obstructive pulmonary disease, unspecified; E66.01 Morbid (severe) obesity due to excess calories; E78.5 Hyperlipidemia, unspecified; E11.65 Type 2 diabetes mellitus with hyperglycemia; Z99.81 Dependence on supplemental oxygen; D64.9 Anemia, unspecified; W19.XXXA Unspecified fall, initial encounter; M17.11 Unilateral primary osteoarthritis, right knee; I48.0 Paroxysmal atrial fibrillation; Z91.14 Patient's other noncompliance with medication regimen; Z72.0 Tobacco use; Z79.02 Long term (current) use of antithrombotics/antiplatelets; R11.2 Nausea with vomiting, unspecified; R10.13 Epigastric pain; M25.561 Pain in right knee; K27.9 Peptic ulcer, site unspecified, unspecified as acute or chronic, without hemorrhage or perforation; K29.70 Gastritis, unspecified, without bleeding
CPT/HCPCS: 36415; 71045; 73562; 74018; 76705; 78264; 80048; 80053; 80307; 82803; 82962; 83036; 83690; 83735; 83880; 84100; 84484; 85025; 85610; 85730; 93005; 93306; 93970; 94640; 94664; 96374; 96375; 99285-25

== ENCOUNTER 2019-03-10 14:52 | Inpatient (IN) | payer BC ==
[2019-03-10] MEDS ORDERED: NACL 0.9% 3 ML SYG IV (17:30)
[2019-03-10] MEDS ORDERED: DOCUSATE SODIUM 100 MG CAP PO (17:30)
[2019-03-10] MEDS ORDERED: GLUCOSE GEL 15 GRAM TUBE PO ×2 (18:00)
[2019-03-10] MEDS ORDERED: GLUCAGON 1 MG INJ IM (18:00)
[2019-03-10] MEDS ORDERED: GLUCOSE GEL 15 GRAM TUBE BUCCAL (18:00)
[2019-03-10] MEDS ORDERED: DEXTROSE 50% 50 ML SYRINGE IV ×2 (18:00)
[2019-03-10] MEDS: SUCRALFATE (100 MG/ML) 10ML CUP PO ×2 (18:08→20:49)
[2019-03-10] MEDS: FUROSEMIDE 40 MG INJ IV (18:09)
[2019-03-10] MEDS: INSULIN ASPART [NOVOLOG] 3 ML PEN SC ×3 (18:11→20:49)
[2019-03-10] MEDS: ACETAMINOPHEN 325 MG TAB PO (18:22)
[2019-03-10] MEDS ORDERED: PENDING SANTYL ORDER FOR WOUND CARE XX (20:00)
[2019-03-10] MEDS ORDERED: ZOLPIDEM 5 MG TAB PO (20:00)
[2019-03-10] MEDS: ATORVASTATIN 10 MG TAB PO (20:49)
[2019-03-10] MEDS: LORAZEPAM 0.5 MG TAB PO (20:49)
[2019-03-10] MEDS: APIXABAN 5 MG TABLET PO (20:49)
[2019-03-10] MEDS: INSULIN GLARGINE [LANTus] (100 UNITS/ML) SYG SC (20:55)
[2019-03-11] MEDS: ACCU-CHEK XX (01:30)
[2019-03-11] MEDS: PANTOPRAZOLE (EC) 40 MG TAB PO ×2 (06:00→06:03)
[2019-03-11] MEDS: FUROSEMIDE 40 MG INJ IV ×2 (06:03→17:32)
[2019-03-11] MEDS: INSULIN ASPART [NOVOLOG] 3 ML PEN SC ×7 (08:10→21:00)
[2019-03-11] MEDS: SUCRALFATE (100 MG/ML) 10ML CUP PO ×4 (08:33→20:58)
[2019-03-11] MEDS: ONDANSETRON 4 MG INJ IV ×2 (08:33→21:22)
[2019-03-11] MEDS: APIXABAN 5 MG TABLET PO ×2 (08:34→20:58)
[2019-03-11] MEDS: QUETIAPINE 100 MG TAB PO (08:34)
[2019-03-11] MEDS: ASPIRIN 81 MG TAB PO (08:34)
[2019-03-11] MEDS: LISINOPRIL 5 MG TAB PO (08:35)
[2019-03-11] MEDS: KETOROLAC 15 MG INJ IV (12:26)
[2019-03-11] MEDS: DIGOXIN 0.125 MG TAB PO (13:51)
[2019-03-11 14:55] LABS: ADD MAN DIFF? NO
[2019-03-11] MEDS ORDERED: morphine 2 MG INJ IV ×2 (14:56→15:30)
[2019-03-11 14:58] LABS: BASOPHILS % 0.1 % (0.0-2.0); EOSINOPHILS % 0.1 % (0.0-7.0); HEMATOCRIT 44.4 % (37.0-47.0); LYMPHOCYTES # 2.2 10^3/ul (0.8-2.9); LYMPHOCYTES % 12.9 % (15.0-51.0); MEAN CORPUSCULAR HEMOGLOBIN 26.3 pg (29.0-33.0); MEAN CORPUSCULAR HGB CONC 29.3 g/dl (32.0-37.0); MEAN CORPUSCULAR VOLUME 89.7 fl (82.0-101.0); MEAN PLATELET VOLUME 11.1 fl (7.4-10.4); MONOCYTE # 1.2 10^3/ul (0.3-0.9); MONOCYTES % 6.9 % (0.0-11.0); NEUTROPHIL # 13.4 10^3/ul (1.6-7.5); NEUTROPHILS % 79.5 % (39.0-77.0); PLATELET COUNT 202 10^3/UL (140-415); RED BLOOD COUNT 4.95 10^6/ul (4.20-5.40); RED CELL DISTRIBUTION WIDTH 19.3 % (11.5-14.5)
[2019-03-11 14:58] LABS: WHITE BLOOD COUNT 16.9 10^3/ul (4.8-10.8)
[2019-03-11 15:18] LABS: PROTIME 17.3 Sec (11.9-14.9); PT RATIO 1.4
[2019-03-11] MEDS ORDERED: ALBUTEROL/IPRATROPIUM (NEB) 3 ML AMP (15:20)
[2019-03-11] MEDS: ALBUTEROL/IPRATROPIUM (NEB) 3 ML AMP HHN ×2 (15:23→21:04)
[2019-03-11 15:28] LABS: ALANINE AMINOTRANSFERASE 107 IU/L (13-69); ALBUMIN 3.6 g/dl (3.3-4.9); ALBUMIN/GLOBULIN RATIO 1.16; ALKALINE PHOSPHATASE 72 IU/L (42-121); ASPARTATE AMINO TRANSFERASE 34 IU/L (15-46); BILIRUBIN,INDIRECT 0.5 mg/dl (0-1.1); BILIRUBIN,TOTAL 0.5 mg/dl (0.2-1.3); BLOOD UREA NITROGEN 26 mg/dl (7-20); CALCIUM 9.1 mg/dl (8.4-10.2); CHLORIDE 91 mmol/L (97-110); CREATININE 0.83 mg/dl (0.44-1.00); Estimated GFR > 60 mL/min (>60); GLUCOSE 125 mg/dl (70-220); POTASSIUM 4.3 mmol/L (3.5-5.1); SODIUM 137 mmol/L (135-144); TOTAL PROTEIN 6.7 g/dl (6.1-8.1)
[2019-03-11 15:29] LABS: BLOOD UREA NITROGEN 25 mg/dl (7-20); CALCIUM 9.1 mg/dl (8.4-10.2); CHLORIDE 90 mmol/L (97-110); CREATININE 0.86 mg/dl (0.44-1.00); Estimated GFR > 60 mL/min (>60); GLUCOSE 129 mg/dl (70-220); POTASSIUM 4.1 mmol/L (3.5-5.1); SODIUM 138 mmol/L (135-144)
[2019-03-11 15:34] LABS: ANION GAP 6 (5-13)
[2019-03-11 15:41] LABS: ANION GAP 6 (5-13); CARBON DIOXIDE 40 mmol/L (21-31); CARBON DIOXIDE 42 mmol/L (21-31)
[2019-03-11 15:58] LABS: PHOSPHORUS 2.7 mg/dl (2.5-4.9)
[2019-03-11 15:58] LABS: MAGNESIUM 1.8 mg/dl (1.7-2.5)
[2019-03-11] MEDS: DEXTROSE 5%-0.45% NACL 500 ML IV (15:58)
[2019-03-11] MEDS: HYDROmorphONE 0.5 MG/0.5 ML SYG IV (16:01)
[2019-03-11] MEDS: PANTOPRAZOLE 40 MG INJ IV (17:32)
[2019-03-11] MEDS: PIPER-TAZO 3.375 GM IV (PMX) 100 ML IVPB (17:33)
[2019-03-11 17:35] LABS: Allen Test ACCEPTAB; Arterial Base Excess 10.2 mmol/L (-3.0-3); Arterial Blood Gas Oxygen Sat 98.5 mmHG (95.0-98.0); Arterial COHb 0.8 % (0.0-3.0); Arterial Fraction of Oxyhgb 97.3 % (93.0-99.0); Arterial HCO3 38.6 mmol/L (22.0-26.0); Arterial MetHb 0.4 % (0.0-1.5); Arterial pCO2 71.8 mmhg (35-45); MODE NASAL CANNULA; Site Left Radial
[2019-03-11] MEDS: IOHEXOL 300MG/ML 150 ML BTL ×2 (19:30)
[2019-03-11] MEDS: ATORVASTATIN 10 MG TAB PO (20:58)
[2019-03-11] MEDS: INSULIN GLARGINE [LANTus] (100 UNITS/ML) SYG SC (21:00)
[2019-03-12] MEDS: ALBUTEROL/IPRATROPIUM (NEB) 3 ML AMP HHN ×5 (01:10→18:28)
[2019-03-12] MEDS: HYDROmorphONE 0.5 MG/0.5 ML SYG IV ×3 (01:30→17:57)
[2019-03-12] MEDS: PIPER-TAZO 3.375 GM IV (PMX) 100 ML IVPB ×2 (01:32→10:38)
[2019-03-12] MEDS: ACCU-CHEK XX (02:00)
[2019-03-12 05:33] LABS: ADD MAN DIFF? NO
[2019-03-12] MEDS: DEXTROSE 5%-0.45% NACL 500 ML IV ×2 (05:37→10:39)
[2019-03-12] MEDS: PANTOPRAZOLE 40 MG INJ IV ×2 (05:38→18:59)
[2019-03-12 05:40] LABS: WHITE BLOOD COUNT 10.3 10^3/ul (4.8-10.8)
[2019-03-12 05:40] LABS: BASOPHILS % 0.1 % (0.0-2.0); EOSINOPHILS # 0.1 10^3/ul (0.0-0.5); EOSINOPHILS % 0.7 % (0.0-7.0); HEMATOCRIT 37.9 % (37.0-47.0); HEMOGLOBIN 11.3 g/dl (12.0-16.0); LYMPHOCYTES # 2.5 10^3/ul (0.8-2.9); LYMPHOCYTES % 23.9 % (15.0-51.0); MEAN CORPUSCULAR HEMOGLOBIN 26.5 pg (29.0-33.0); MEAN CORPUSCULAR HGB CONC 29.8 g/dl (32.0-37.0); MEAN CORPUSCULAR VOLUME 88.8 fl (82.0-101.0); MEAN PLATELET VOLUME 11.4 fl (7.4-10.4); MONOCYTE # 0.9 10^3/ul (0.3-0.9); MONOCYTES % 8.3 % (0.0-11.0); NEUTROPHIL # 6.9 10^3/ul (1.6-7.5); NEUTROPHILS % 66.7 % (39.0-77.0); PLATELET COUNT 102 10^3/UL (140-415); RED BLOOD COUNT 4.27 10^6/ul (4.20-5.40); RED CELL DISTRIBUTION WIDTH 18.9 % (11.5-14.5)
[2019-03-12] MEDS: PANTOPRAZOLE (EC) 40 MG TAB PO (05:40)
[2019-03-12] MEDS: FUROSEMIDE 40 MG INJ IV ×2 (05:40→19:04)
[2019-03-12 06:10] LABS: BLOOD UREA NITROGEN 21 mg/dl (7-20); CALCIUM 8.1 mg/dl (8.4-10.2); CHLORIDE 93 mmol/L (97-110); Estimated GFR > 60 mL/min (>60); GLUCOSE 67 mg/dl (70-220); POTASSIUM 4.2 mmol/L (3.5-5.1); SODIUM 137 mmol/L (135-144)
[2019-03-12 06:36] LABS: ANION GAP 4 (5-13); CARBON DIOXIDE 40 mmol/L (21-31)
[2019-03-12] MEDS: INSULIN ASPART [NOVOLOG] 3 ML PEN SC ×7 (07:35→18:05)
[2019-03-12] MEDS: LISINOPRIL 5 MG TAB PO (09:00)
[2019-03-12] MEDS: QUETIAPINE 100 MG TAB PO (09:00)
[2019-03-12] MEDS: ASPIRIN 81 MG TAB PO (09:00)
[2019-03-12] MEDS: APIXABAN 5 MG TABLET PO (09:00)
[2019-03-12] MEDS: SUCRALFATE (100 MG/ML) 10ML CUP PO ×4 (09:00→17:57)
[2019-03-12] MEDS: DIGOXIN 0.125 MG TAB PO ×2 (13:00→15:40)
[2019-03-12] MEDS: LORAZEPAM 2 MG INJ IV (15:36)
== END 2019-03-12 20:21 | disposition home or self-care (01) | DRG 391 ==
LOC: PP2 14:52
PROVIDERS: Internal Medicine Nephrology
PROC: 4A033R1 Measurement of Arterial Saturation, Peripheral, Percutaneous Approach (ICD-10-PCS; principal; 2019-03-11)
DX: K22.8 Other specified diseases of esophagus (principal); I50.23 Acute on chronic systolic (congestive) heart failure; Z68.43 Body mass index [BMI] 50.0-59.9, adult; I42.9 Cardiomyopathy, unspecified; I13.0 Hypertensive heart and chronic kidney disease with heart failure and stage 1 through stage 4 chronic kidney disease, or unspecified chronic kidney disease; E11.9 Type 2 diabetes mellitus without complications; E78.5 Hyperlipidemia, unspecified; J44.9 Chronic obstructive pulmonary disease, unspecified; I08.1 Rheumatic disorders of both mitral and tricuspid valves; E66.01 Morbid (severe) obesity due to excess calories; F31.9 Bipolar disorder, unspecified; K21.9 Gastro-esophageal reflux disease without esophagitis; I48.0 Paroxysmal atrial fibrillation; F12.10 Cannabis abuse, uncomplicated; F14.10 Cocaine abuse, uncomplicated; D72.829 Elevated white blood cell count, unspecified; K31.89 Other diseases of stomach and duodenum; F41.9 Anxiety disorder, unspecified; K76.9 Liver disease, unspecified; D63.8 Anemia in other chronic diseases classified elsewhere; N18.9 Chronic kidney disease, unspecified; Z79.82 Long term (current) use of aspirin; Z79.4 Long term (current) use of insulin; Z79.01 Long term (current) use of anticoagulants
CPT/HCPCS: 36600; 74230; 80048; 80053; 82803; 82962; 83735; 84100; 85025; 85610; 87081; 93005; 94640; 94664